=== PATIENT | female | born 1945 | race Caucasian/White ===

== ENCOUNTER 2018-04-23 10:10 | Observation (INO) | payer MEDICARE, OTHER, SELFPAY ==
[2018-04-23] VITALS (10 sets, daily range): BP systolic 126–161; BP diastolic 56–77; PULSE 71–103; RESP 17–20; TEMP 36.5–36.7; O2SAT 92–97; BMI 42.5; BMI 42.6; BMI 42.7
--- NOTE | 2018-04-23 10:14 | ED.RN ---
CALLED FOR EKG . PT TO ROOM. TRIAGE FINISHED AFTER PT TO ROOM
--- NOTE | 2018-04-23 10:31 | EKG12_ITS ---
Test Reason : CP Blood Pressure : / mmHG Vent. Rate : 095 BPM Atrial Rate : 095 BPM P-R Int : 132 ms QRS Dur : 076 ms QT Int : 346 ms P-R-T Axes : 078 061 070 degrees QTc Int : 434 ms Sinus rhythm with marked sinus arrhythmia Low voltage QRS Nonspecific ST abnormality Abnormal ECG Confirmed by ANA NOLASCO, ABENA ([id number]), magazine editor PENNY HESS ([id number]) on 04/27/2018 10:27:37 AM Referred By: FRED Confirmed By:ABENA PEREZ MD
--- NOTE | 2018-04-23 10:35 | RAD_ITS ---
STUDY: X-RAY CHEST REASON FOR EXAM: Female, 72 years old. Chest pain. TECHNIQUE: Single AP portable view of the chest. COMPARISON: None. FINDINGS: EKG electrodes are seen. Hyperinflation. Scattered calcified granulomas. There is no demonstrated pleural abnormality. Normal size heart. Normal mediastinum and willy. Normal visualized pulmonary arteries. There is atherosclerotic calcification of the aortic arch with tortuosity. There are diffuse degenerative changes of the visualized thoracic spine. Normal visualized ribs, clavicles, and shoulders. There is no demonstrated abnormality of the visualized soft tissue structures of the upper abdomen. RAD/Chest 1 View (Portable) IMPRESSION: No acute abnormality is seen. Electronically Signed: Freedom Brandt MD at 11:26 EST , Service support ,
[2018-04-23] MEDS: Aspirin 81 MG TAB.CHEW 324 MG PO (10:47)
[2018-04-23 11:06] LABS: Absolute Lymphocyte Count 1.04 X10^3/ul (0.83-4.51); Absolute Neutrophil Count 3.7 X10^3/uL (2.0-7.7); Basophil# 0.03 X10^3/uL; Basophil% 0.6 % (0-1); Eosinophil# 0.24 X10^3/uL; Eosinophils% 4.5 % (0-5); Hematocrit 44.7 % (37-47); Hemoglobin 14.5 g/dl (12.0-15.0); Lymphocyte # 1.04 X10^3/ul (4.0); Lymphocyte % 19.7 % (19-41); Mean Corp Hgb Conc 32.4 g/gl (32-36); Mean Corpuscular Hgb 29.5 pg (27.0-32.0); Mean Corpuscular Volume 90.9 fL (81-99); Mean Platelet Vol. 9.9 fl (6.2-12.0); Monocyte# 0.22 X10^3/uL; Monocyte% 4.2 % (0-10); Neutrophil # 3.72 X10^3/uL (2.7-7.7); Neutrophil % 70.4 % (47-70); Platelet Count 170 K/mm3 (150-450); RBC Distribution Width CV 15.3 % (11.6-14.6); RBC Distribution Width SD 50.5 fl (35.1-43.9); Red Blood Count 4.92 M/mm3 (4.2-5.4); White Blood Count 5.3 K/mm3 (4.4-11.0)
[2018-04-23 11:07] LABS: POSITIVE COUNT NO; POSITIVE DIFFERENTIAL NO; POSITIVE MORPHOLOGY NO
[2018-04-23 11:19] LABS: ALB/GLOB Ratio 0.9 RATIO (0.9-2.4); AST(SGOT) 65 U/L (15-37); Alanine Aminotransfer ALT/SGPT 109 U/L (13-56); Albumin, Serum 3.4 g/dL (3.2-5.0); Alkaline Phosphatase 70 U/L (45-117); Anion Gap 7 (5-15); BUN 17 mg/dL (7-18); BUN/Creat Ratio 19.2 RATIO (10-20); Calcium,Total 8.8 mg/dL (8.5-10.1); Chloride 103 mmol/L (98-107); Creatinine, Serum 0.88 mg/dL (0.55-1.02); EST Glomerular Filtration Rate 66 mL/min (>60); Est Glom Filt Rate - Afr Amer 80 mL/min (>60); Estimated Creatinine Clearance 42.96 ml/min; Globulin 3.7 g/dL (2.2-4.2); Glucose 222 mg/dL (74-106); Potassium 3.8 mmol/L (3.5-5.1); Protein, Total 7.1 g/dL (6.4-8.2); Sodium Level 140 mmol/L (136-145)
[2018-04-23 11:37] LABS: BNP,B-Type NATRIURETIC PEPTIDE 7.1 pg/mL (0-100)
--- NOTE | 2018-04-23 12:49 | ED.VISSUMM ---
- ER Visit Summary Date of Service: 04/23/18 Chief Complaint: Chest pain History of Present Illness: The patient is a 72 F with left lower chest pain. It wraps around to her back in her right lower chest as well. This has been going on for about a week. Worse at night and sharp. Worse with walking and exertion. She feels short of breath. She says her legs are swelling. She does get nauseated with the pain. She denies any history of DVT or PE. No recent trauma. She had a stress 3 or 4 years ago which she thinks was unremarkable. History of diabetes, high blood pressure, and high cholesterol. Also a history of fatty liver. Former smoker. Physical Examination: Afebrile and vital signs unremarkable except for a blood pressure of 161/77. Patient appears uncomfortable but not toxic or in distress. Heart regular. Lungs clear. Abdomen soft and non-tender. No guarding or rebound. CVA is nontender. Skin appears unremarkable. Skin, calves, pulses unremarkable. Test Results: EKG showed sinus rhythm at a rate of 95. Troponin normal. BNP normal. CBC and CMP normal except for a glucose of 222, total bilirubin 1.10, ALT 109, AST 65. Chest x-ray showed no acute findings. Emergency Department Course and Treatment: Patient presents with chest pain, shortness of breath, nausea. Worse with exertion. History of diabetes, hypertension, hyperlipidemia and a former smoker. She also reports a history of fatty liver. I did check a chest pain workup as well as a hepatic panel. Liver enzymes are slightly elevated but otherwise workup is unremarkable. With her risk factors, I am advising observation in the hospital. Treatment Plan: Above Disposition: Observation in PCU Impression: 1. Chest pain 2. PRESSLEY This note was generated with [employer] software. It may contain incorrect words, spelling, and punctuation that were not noted in review of the chart prior to signing ED Disposition - Plan for ED Patient: Referrals: Maikel Morris [Primary Care Provider] -
--- NOTE | 2018-04-23 14:33 | EKG12_ITS ---
Test Reason : CP ADMISSION Blood Pressure : / mmHG Vent. Rate : 072 BPM Atrial Rate : 072 BPM P-R Int : 126 ms QRS Dur : 078 ms QT Int : 376 ms P-R-T Axes : 054 060 076 degrees QTc Int : 411 ms Normal sinus rhythm Low voltage QRS Borderline ECG When compared with ECG of 06-NOV-2009 09:43, No significant change was found Confirmed by ANA NOLASCO, ABENA ([id number]), editor magazine PENNY HESS ([id number]) on 04/30/2018 11:50:31 AM Referred By: BETH Confirmed By:ABENA PEREZ MD
[2018-04-23 14:36] LABS: Bedside Glucose 98 mg/dL (70-110)
--- NOTE | 2018-04-23 15:26 | PCM.HP.STD ---
Problem List (1) Chest pain Status: Acute History of Present Illness Date of Admission: 04/23/18 Chief Complaint: chest pain The patient is a 72 year old F who has been experiencing chest pain the past few days. Describes it as under her breasts and through to her chest. Denies any exacerbation with deep breaths. Patient states that she does walk her dog and will get chest pain with that. She also does get short of breath along with that too. Has had chest pain like this in the past has had a broken ribs due to coughing. Patient states that she did have upper respiratory infection for several weeks but then stopped on April 07. She is coughing and it is productive intermittently but states that she is doing better overall from her upper respiratory infection. She presented to the emergency room and workup was thus far negative. [] Past Medical History Medical History: Medical History (Last Updated 04/23/18 @ 15:29 by Richar Duncan DO) DM2 (diabetes mellitus, type 2) E11.9 Hypothyroidism E03.9 HTN (hypertension) I10 Allergies Penicillins Allergy (Verified 04/23/18 13:58) Hives Sulfa (Sulfonamide Antibiotics) Allergy (Verified 04/23/18 10:14) Unknown Home Medications: Ambulatory Orders Medication Instructions Recorded Albuterol IH (ProAir) [Proair Hfa 1 puff INHALATION Q4H PRN PRN 04/23/18 (SP)Vent Pts] Aspirin [Adult Aspirin] 81 mg PO QHS 04/23/18 Insulin Aspart [Novolog Flexpen] 24 units SQ TIDCM 04/23/18 Insulin Glargine,Hum.rec.anlog 45 units SQ BID 04/23/18 [Lantus] Levothyroxine [Synthroid] 137 mcg PO DAILY 04/23/18 Losartan Potassium [Cozaar] 12.5 mg PO DAILY 04/23/18 Metformin HCl [Metformin ER 1,500 mg PO BREAKFAST 04/23/18 Osmotic] Pantoprazole Sodium 40 mg PO DAILY 04/23/18 Simvastatin 10 mg PO QHS 04/23/18 Zolpidem Tartrate [Ambien 5 mg PO QHS PRN PRN 04/23/18 (Generic)] Psychiatric History: Anxiety, Depression Smoking Status: Former smoker Tobacco Use: Non-smoker Alcohol: None Drugs: None - *Family History Maternal History Items: - - no CAD Review of Systems Constitutional: Denies: Anorexia, Chills, Fever Eyes: Denies: Blurred vision, Double vision HEENT: Denies: Head Aches, Sinus Congestion, Sinus Drainage Cardiovascular: Reports: Chest Pain, Edema. Denies: Palpitations Respiratory: Denies: Cough, Shortness of breath at rest, Sputum production Gastrointestinal: Denies: Abdominal Pain, Nausea, Vomiting Genitourinary: Denies: Dysuria Musculoskeletal: Denies: Joint Pain, Joint Tenderness Skin: Denies: Rash, Wounds Hematologic/ Lymphatic: Denies: Easy Bruising, Easy Bleeding, Hx of blood clot Comment: A 10 point review of systems were negative except as mentioned in the history of present illness and the other review of systems. VTE Information - Inpt Only VTE Present on Admission: No VTE Pharm Prophylaxis ordered?: Yes Patient Problems: Active and Suspected Problems Chest pain (Acute) - Physical Exam General: Alert, Cooperative, No apparent distress HEENT: Atraumatic, Normocephalic Oral: Moist Mucosa, No Gingival or Mucosal Lesions/ Ulcerations Neck: No Nodes, Thyroid Normal Size and Texture Lungs: Clear to auscultation, Normal air movement, No rhonchi, No wheeze Cardiovascular: Regular rate, Regular Rhythm, Normal S1, Normal S2, No murmurs Abdomen: Bowel Sounds Present, Soft, Non Tender, Non-Distended, No Hepato-splenomegaly Extremities: No edema, No Calf Tenderness Skin: No rashes, No breakdown Musculoskeletal: No Tenderness to Palpation of Joints or Extremities, No Muscle Wasting Psych/Mental Status: Normal Affect, Appropriate Vital Signs Temp Pulse Resp BP Pulse Ox 36.5 C L 87 18 126/56 H 95 04/23/18 13:53 04/23/18 15:07 04/23/18 13:53 04/23/18 13:53 04/23/18 14:11 Oxygen Delivery Method Room Air Weight: 102.4 kg Body Mass Index (BMI) 42.6 Laboratory Tests Past 24 Hrs 04/23/18 04/23/18 04/23/18 10:22 10:22 10:22 WBC 5.3 RBC 4.92 Hgb 14.5 Hct 44.7 MCV 90.9 MCH 29.5 MCHC 32.4 RDW 15.3 H RDW Differential 50.5 H Plt Count 170 MPV 9.9 Immature Gran % (Auto) 0.600 Neut % (Auto) 70.4 H Lymph % (Auto) 19.7 [place] % (Auto) 4.2 Eos % (Auto) 4.5 Baso % (Auto) 0.6 Absolute Neuts (auto) 3.7 Absolute Lymphs (auto) 1.04 Total Counted Not Reportable Sodium 140 Potassium 3.8 Chloride 103 Carbon Dioxide 30.0 Anion Gap 7 BUN 17 Creatinine 0.88 Estim Creat Clear Calc 42.96 Est GFR (MDRD) Af Amer 80 Est GFR (MDRD) Non-Af 66 BUN/Creatinine Ratio 19.2 Glucose 222 H Calcium 8.8 Total Bilirubin 1.10 H AST 65 H ALT 109 H Alkaline Phosphatase 70 Troponin I < 0.015 B-Natriuretic Peptide 7.1 Total Protein 7.1 Albumin 3.4 Globulin 3.7 Albumin/Globulin Ratio 0.9 04/23/18 15:10 WBC RBC Hgb Hct MCV MCH MCHC RDW RDW Differential Plt Count MPV Immature Gran % (Auto) Neut % (Auto) Lymph % (Auto) [place] % (Auto) Eos % (Auto) Baso % (Auto) Absolute Neuts (auto) Absolute Lymphs (auto) Total Counted Sodium Potassium Chloride Carbon Dioxide Anion Gap BUN Creatinine Estim Creat Clear Calc Est GFR (MDRD) Af Amer Est GFR (MDRD) Non-Af BUN/Creatinine Ratio Glucose Calcium Total Bilirubin AST ALT Alkaline Phosphatase Troponin I Pending B-Natriuretic Peptide Total Protein Albumin Globulin Albumin/Globulin Ratio POC Glucose 04/23/18 14:28 POC Glucose 98 EKG shows normal sinus rhythm with no acute changes. Assessment/Plan All Active Problems Chest pain (Acute) 1. Chest pain Atypical Suspect musculoskeletal But given patient's risk factors, important to rule out cardiac etiology Cycle troponins Nuclear stress test on the eighth. If negative, patient will be discharged. If positive, will consult cardiology. 2. Diabetes mellitus type 2 Continue with insulin and metformin Sliding scale added as well 3. DVT prophylaxis with Lovenox Code Visit OBSV E&M: 64777 Initial observation care L2
[2018-04-23 16:36] LABS: Bedside Glucose 192 mg/dL (70-110)
[2018-04-23] MEDS: Insulin Lispro 100 UNIT/ML INSULN.PEN SQ (17:46)
[2018-04-23] MEDS: oxyCODONE 5 MG Tablet PO (19:58)
[2018-04-23] MEDS: Atorvastatin Calcium 10 MG Tablet 5 MG PO (21:34)
[2018-04-23] MEDS: Aspirin E.C. 81 MG Tablet PO (21:34)
[2018-04-23 22:02] LABS: Bedside Glucose 257 mg/dL (70-110)
[2018-04-24 03:25] VITALS: BP 154/67; PULSE 86; RESP 18; TEMP 36.6; O2SAT 94
[2018-04-24 03:52] VITALS: PULSE 80
[2018-04-24 04:48] LABS: Absolute Lymphocyte Count 1.36 X10^3/ul (0.83-4.51); Absolute Neutrophil Count 3.6 X10^3/uL (2.0-7.7); Basophil# 0.04 X10^3/uL; Basophil% 0.7 % (0-1); Eosinophil# 0.18 X10^3/uL; Eosinophils% 3.1 % (0-5); Hematocrit 41.6 % (37-47); Lymphocyte # 1.36 X10^3/ul (4.0); Lymphocyte % 23.6 % (19-41); Mean Corp Hgb Conc 33.7 g/gl (32-36); Mean Corpuscular Hgb 30.6 pg (27.0-32.0); Monocyte% 8.7 % (0-10); Neutrophil # 3.64 X10^3/uL (2.7-7.7); Platelet Count 185 K/mm3 (150-450); RBC Distribution Width CV 15.4 % (11.6-14.6); RBC Distribution Width SD 50.6 fl (35.1-43.9); Red Blood Count 4.57 M/mm3 (4.2-5.4); White Blood Count 5.8 K/mm3 (4.4-11.0)
[2018-04-24 04:52] LABS: Prothrombin Time (Protime)PT. 13.3 SECONDS (11.7-14.9)
[2018-04-24 04:53] LABS: Partial Thromboplast Time 30.5 Seconds (24.1-36.2)
[2018-04-24 04:56] LABS: POSITIVE COUNT NO; POSITIVE DIFFERENTIAL NO; POSITIVE MORPHOLOGY NO
[2018-04-24 05:02] LABS: Anion Gap 10 (5-15); BUN 16 mg/dL (7-18); BUN/Creat Ratio 18.3 RATIO (10-20); Calcium,Total 8.9 mg/dL (8.5-10.1); Chloride 101 mmol/L (98-107); Cholesterol 118 mg/dL (200); Creatinine, Serum 0.88 mg/dL (0.55-1.02); EST Glomerular Filtration Rate 67 mL/min (>60); Est Glom Filt Rate - Afr Amer 81 mL/min (>60); Estimated Creatinine Clearance 42.96 ml/min; Glucose 241 mg/dL (74-106); High Density Lipoprotein 39 mg/dL; Potassium 4.2 mmol/L (3.5-5.1); Sodium Level 142 mmol/L (136-145); Triglycerides 205 mg/dL; Very Low Density Lipoprotein 41 mg/dL (5-40)
--- NOTE | 2018-04-24 05:55 | EKG12_ITS ---
Test Reason : AM Blood Pressure : / mmHG Vent. Rate : 083 BPM Atrial Rate : 083 BPM P-R Int : 122 ms QRS Dur : 078 ms QT Int : 364 ms P-R-T Axes : 079 057 059 degrees QTc Int : 427 ms Normal sinus rhythm with sinus arrhythmia Low voltage QRS Borderline ECG When compared with ECG of 23-APR-2018 14:02, MANUAL COMPARISON REQUIRED, DATA IS UNCONFIRMED Confirmed by ANA NOLASCO, ABENA ([id number]), movie editor PENNY HESS ([id number]) on 04/30/2018 11:49:20 AM Referred By: BETH Confirmed By:ABENA PEREZ MD
[2018-04-24] MEDS: Losartan Potassium 25 MG Tablet 12.5 MG PO (06:31)
[2018-04-24] MEDS: Levothyroxine 137 MCG Tablet PO (06:31)
[2018-04-24] MEDS: 0.9% NaCl Peripheral Flush Adult/Peds IV (06:35)
[2018-04-24 06:51] LABS: Bedside Glucose 264 mg/dL (70-110)
[2018-04-24 07:00] VITALS: PULSE 100
[2018-04-24] MEDS: Acetaminophen 325 MG Tablet 650 MG PO (09:21)
[2018-04-24] MEDS: Pantoprazole Sodium 40 MG Tablet PO (09:22)
[2018-04-24 09:25] VITALS: BP 154/82; PULSE 93; RESP 16; TEMP 36.6; O2SAT 98
[2018-04-24 11:00] VITALS: PULSE 72
[2018-04-24] MEDS: Insulin Lispro 100 UNIT/ML INSULN.PEN SQ (11:14)
--- NOTE | 2018-04-24 11:20 | DCINST_ITS ---
- Discharge Diagnoses Current Active Problems: Current Active and Chronic Problems (Last Updated 04/23/18 @ 15:29 by Richar Duncan DO) Chest pain (Acute) You will use the following diet at home:: Calorie/Carbohydrate Controlled (specify 1200, 1400, etc) - 1800 calories/day Your food should be the consistency of: Regular Your liquids should be the consistency of: Regular/Thin Discharge Activity: Return to Normal Activity Instructions: ED Chest Pain NonCardiac Allergies/Adverse Reactions: Allergies Penicillins Allergy (Verified 04/23/18 13:58) Hives Sulfa (Sulfonamide Antibiotics) Allergy (Verified 04/23/18 10:14) Unknown Medications to take at Discharge Albuterol IH (ProAir) [Proair Hfa] 1 puff INHALATION Q4H PRN PRN 04/23/18 Aspirin [Adult Aspirin] 81 mg PO QHS 04/23/18 Insulin Aspart [Novolog Flexpen] 24 units SQ TIDCM 04/23/18 Insulin Glargine,Hum.rec.anlog [Lantus] 45 units SQ BID 04/23/18 Levothyroxine [Synthroid] 137 mcg PO DAILY 04/23/18 Losartan Potassium [Cozaar] 12.5 mg PO DAILY 04/23/18 Metformin HCl [Metformin HCl ER] 1,500 mg PO BREAKFAST 04/23/18 Pantoprazole Sodium 40 mg PO DAILY 04/23/18 Simvastatin 10 mg PO QHS 04/23/18 Zolpidem Tartrate [Ambien] 5 mg PO QHS PRN PRN 04/23/18 Acetaminophen [Tylenol Tablet] 1,000 mg PO TID PRN tablet 04/24/18 Ibuprofen 2 - 3 tab PO Q6H PRN #1 tablet 04/24/18 The following prescriptions were given: Ibuprofen 2 - 3 tab PO Q6H PRN #1 tablet PRN Reason: Pain Primary Care Physician: Maikel Morris [Primary Care Provider] - Within 2 Weeks Test Results: Test results from this visit will be discussed in further detail at your follow- up appointment, if applicable. Proposed Discharge Date: 04/24/18
--- NOTE | 2018-04-24 11:20 | PCM.DC.SUM ---
Discharge Date and Diagnosis - Problem List Patient Problems: Active and Suspected Problems (Last Updated 04/23/18 @ 15:29 by Richar Duncan DO) Chest pain (Acute) Date of Admission: 04/23/18 Date of Discharge: 04/24/18 - Primary Discharge Diagnosis Active and Suspected Problems (Last Updated 04/23/18 @ 15:29 by Richar Duncan DO) Chest pain (Acute) Hospital Course and Treatment Imaging Results: 04/24/18 05:55 Nuclear Stress Test - Chemical [NM] AM (NON MEDS) Clinical Impression(s) from Imaging Studies Chest X-Ray 04/23/18 10:35 IMPRESSION: No acute abnormality is seen. Electronically Signed: Freedom Brandt MD at 11:26 EST , Service support , Operations: None Procedures: Stress test Summary of Care Provided: The patient is a 72 year old F is with chest pain. Chest pain was described as lower chest and through to her back along the lateral aspect of her left chest. Patient had reproducible back pain and rib pain along the lines of where she was indicating. But given patient's history and other comorbidities, patient was brought into the hospital and underwent a stress test. Patient had a stress test today that was negative. I discussed with the patient about the findings and also discussed that this is likely associated with ribs. Patient previously has had a history of rib fractures. Explained that if she has a rib fracture, which I do not suspect or just cost chondritis versus muscle strain that will take several weeks for it to feel better. Discussed with the patient's at bedside. I did evaluate the skin to make sure she did not have vesicles over her left lateral chest. [] Patient Problems: Active and Suspected Problems (Last Updated 04/23/18 @ 15:29 by Richar Duncan DO) Chest pain (Acute) - Physical Exam General: Alert, No apparent distress HEENT: Atraumatic, Normocephalic Psych/Mental Status: Normal Affect, Appropriate Vital Signs Temp Pulse Resp BP Pulse Ox 36.6 C 93 16 154/82 H 98 04/24/18 09:25 04/24/18 09:25 04/24/18 09:25 04/24/18 09:25 04/24/18 09:25 Oxygen Delivery Method Room Air Weight: 102.4 kg Body Mass Index (BMI) 42.6 Intake and Output for Last 24 Hours 04/22/18 04/23/18 04/24/18 23:59 23:59 23:59 Intake Total 1050 / 1050 Balance 1050 / 1050 Laboratory Tests Past 24 Hrs 04/23/18 04/23/18 04/23/18 10:22 15:10 17:20 WBC RBC Hgb Hct MCV MCH MCHC RDW RDW Differential Plt Count MPV Immature Gran % (Auto) Neut % (Auto) Lymph % (Auto) [place] % (Auto) Eos % (Auto) Baso % (Auto) Absolute Neuts (auto) Absolute Lymphs (auto) Total Counted PT INR APTT Sodium Potassium Chloride Carbon Dioxide Anion Gap BUN Creatinine Estim Creat Clear Calc Est GFR (MDRD) Af Amer Est GFR (MDRD) Non-Af BUN/Creatinine Ratio Glucose Calcium Troponin I < 0.015 < 0.015 B-Natriuretic Peptide 7.1 Triglycerides Cholesterol LDL Cholesterol VLDL Cholesterol HDL Cholesterol 04/24/18 04/24/18 04/24/18 04:28 04:28 04:28 WBC 5.8 RBC 4.57 Hgb 14.0 Hct 41.6 MCV 91.0 MCH 30.6 MCHC 33.7 RDW 15.4 H RDW Differential 50.6 H Plt Count 185 MPV 10.0 Immature Gran % (Auto) 0.900 Neut % (Auto) 63.0 Lymph % (Auto) 23.6 [place] % (Auto) 8.7 Eos % (Auto) 3.1 Baso % (Auto) 0.7 Absolute Neuts (auto) 3.6 Absolute Lymphs (auto) 1.36 Total Counted Not Reportable PT 13.3 INR 1.0 APTT 30.5 Sodium 142 Potassium 4.2 Chloride 101 Carbon Dioxide 31.0 Anion Gap 10 BUN 16 Creatinine 0.88 Estim Creat Clear Calc 42.96 Est GFR (MDRD) Af Amer 81 Est GFR (MDRD) Non-Af 67 BUN/Creatinine Ratio 18.3 Glucose 241 H Calcium 8.9 Troponin I B-Natriuretic Peptide Triglycerides 205 H Cholesterol 118 LDL Cholesterol 38 VLDL Cholesterol 41 H HDL Cholesterol 39 L POC Glucose 04/24/18 04/23/18 04/23/18 06:29 21:31 16:16 POC Glucose 264 H 257 H 192 H 04/23/18 14:28 POC Glucose 98 Discharge Diet: 1800 Calorie Control Diet Discharge Activity: Return to Normal Activity Home Medications: Medications to take at Discharge Albuterol IH (ProAir) [Proair Hfa] 1 puff INHALATION Q4H PRN PRN 04/23/18 Aspirin [Adult Aspirin] 81 mg PO QHS 04/23/18 Insulin Aspart [Novolog Flexpen] 24 units SQ TIDCM 04/23/18 Insulin Glargine,Hum.rec.anlog [Lantus] 45 units SQ BID 04/23/18 Levothyroxine [Synthroid] 137 mcg PO DAILY 04/23/18 Losartan Potassium [Cozaar] 12.5 mg PO DAILY 04/23/18 Metformin HCl [Metformin HCl ER] 1,500 mg PO BREAKFAST 04/23/18 Pantoprazole Sodium 40 mg PO DAILY 04/23/18 Simvastatin 10 mg PO QHS 04/23/18 Zolpidem Tartrate [Ambien] 5 mg PO QHS PRN PRN 04/23/18 Acetaminophen [Tylenol Tablet] 1,000 mg PO TID PRN tablet 04/24/18 Ibuprofen 2 - 3 tab PO Q6H PRN #1 tablet 04/24/18 Following Prescrptions Were Given to Patient: Ibuprofen 2 - 3 tab PO Q6H PRN #1 tablet PRN Reason: Pain Primary Care Physician: Maikel Morris [Primary Care Provider] - Within 2 Weeks Patient Instructions: ED Chest Pain NonCardiac Disposition: Home Minutes spent on discharge:: 25 Patient Condition:: Good Medical Necessity - Tobacco Use Smoking Status: Former smoker Tobacco Use: Non-smoker Meaningful Use Info Meaningful Use Diagnoses (Choose all that apply): None applicable Code Visit OBSV E&M: 75383 Observation care discharge
[2018-04-24 11:41] LABS: Bedside Glucose 297 mg/dL (70-110)
--- NOTE | 2018-04-24 11:51 | STRESSREP ---
Stress Test Report Pharmacologic myocardial perfusion stress test. 72-year-old lady with a history of chest pain. Stress protocol: Resting EKG demonstrates normal sinus rhythm with a rate of 83 bpm normal intervals are noted resting blood pressure 132/64 mmHg. 0.4 mg of regadenoson was infused per usual protocol followed by rapid intravenous saline flush injection continuous EKG monitoring was performed. The maximum heart rate attained was 108 bpm which was 73% of maximum predicted heart rate the maximum workload was 1 metabolic equivalent. At rest there were no ST or T wave changes noted suggest abnormal flow reserve at peak infusion no ST or T wave changes were noted suggest abnormal flow reserve. Resting blood pressure 132/64 final blood pressure was 128/72. Myocardial perfusion protocol. 14.7 mCi of technetium 99m sestamibi was injected at rest. 0.4 mg of regadenoson was infused per usual protocol peak infusion 44.4 mCi of technetium 99m sestamibi was injected stress images were obtained stress and rest images were reconstructed and compared in the short axis vertical and horizontal long axis. Gated images were also obtained next Perfusion SPECT analysis: Review of the stress images demonstrate normal uptake of tracer noted in all areas of the myocardium. The rest images similarly demonstrate normal uptake of tracer noted in all areas of myocardium. No areas of reversibility are noted suggest ischemia no previous infarct is noted. Gated SPECT analysis: The gated ejection fraction of 78% proximal conclusion: Normal pharmacologic myocardial perfusion stress test. Preserved ejection fraction.
== END 2018-04-24 11:19 | disposition home or self-care (01) ==
LOC: ED 13:01 → PCU 13:14
PROVIDERS: Emergency Provider Emergency Medicine
DX: R07.89 Other chest pain (principal); R06.02 Shortness of breath; R11.0 Nausea; I10 Essential (primary) hypertension; K75.81 Nonalcoholic steatohepatitis (NASH); E78.5 Hyperlipidemia, unspecified; Z79.4 Long term (current) use of insulin; Z87.891 Personal history of nicotine dependence; Z79.82 Long term (current) use of aspirin; Z79.899 Other long term (current) drug therapy; E03.9 Hypothyroidism, unspecified; F41.9 Anxiety disorder, unspecified; F32.9 Major depressive disorder, single episode, unspecified; R94.31 Abnormal electrocardiogram [ECG] [EKG]
CPT/HCPCS: 36415; 71045; 78452; 80048; 80053; 80061; 82962; 83880; 84484; 85025; 85610; 85730; 93005; 93017; 99218; 99284; A9500; A4216; G0378; J2785

== ENCOUNTER → 2018-05-08 15:01 | Outpatient (CLI) | payer MEDICARE, OTHER, SELFPAY ==
[2018-04-23 14:07] VITALS: BMI 42.6
[2018-05-11 15:39] LABS: Anti-Smooth Muscle ABS 6 Units (0-19); HEPATITIS B SURFACE AG Negative (Negative); Hep C Antibodies 0.1 s/co ratio (0.0-0.9)
[2018-05-12 15:35] LABS: ANTINUCLEAR ANTIBODIES DIRECT Negative (Negative); Anti-Mitochondrial AB 16.9 Units (0.0-20.0)
== END ==
PROVIDERS: Referring Provider Internal Medicine Gastroenterology; Visit Provider Internal Medicine Gastroenterology
DX: K75.9 Inflammatory liver disease, unspecified (principal)
CPT/HCPCS: 36415; 83516; 86038; 86803; 87340

== ENCOUNTER → 2018-05-12 14:03 | Outpatient (CLI) | payer MEDICARE, OTHER, SELFPAY ==
[2018-04-23 14:07] VITALS: BMI 42.6
--- NOTE | 2018-05-12 14:08 | CT_ITS ---
STUDY: CT ABDOMEN WITH CONTRAST REASON FOR EXAM: Female, 72 years old. RADIATION DOSAGE (If Supplied By Facility): CTDIvol = ( 17.07 ) mGy, DLP = ( 762.75 ) mGycm TECHNIQUE: Transaxial images were obtained post I.V. administration of Isovue 300 100ML IV, and with oral contrast. Sagittal and coronal images were reconstructed. Individualized dose optimization techniques were used for this CT. COMPARISON: None. FINDINGS: The visualized lung bases are unremarkable. The visualized portions of the heart are within normal limits. Mild fatty infiltration of the liver. Gallbladder is surgically absent. No biliary duct dilatation. Normal spleen. Normal pancreas. Normal bilateral adrenal glands. Partially enhancing hypoattenuated lesion within the left upper renal pole measuring 2.3 cm. Additional hypoattenuated lesion at the left upper renal pole measuring near water density. Normal bilateral ureters. Normal visualized stomach. There is a diverticulum arising off of the third portion of the duodenum. Remaining visualized small bowel loops are unremarkable. Normal visualized colon. The appendix is not visualized. Mild atherosclerotic calcification of the abdominal aorta. Normal inferior vena cava. Normal retroperitoneum. No free air or free fluid. Normal abdominal wall. Mild anterior wedging of the L1 vertebral body of uncertain acuity. CT/Abdomen WITH IV Contrast IMPRESSION: 1. 2.3 cm partially enhancing hypoattenuated lesion at the left upper renal pole, concerning for renal cell carcinoma. Dedicated MR imaging should be obtained for further characterization. 2. Simple appearing left upper renal pole cyst. 3. Mild fatty infiltration of the liver. 4. Diverticulum off the third portion of the duodenum. Electronically Signed: Kevin Dodge MD at 1:38 EST Tel , Service support ,
== END ==
PROVIDERS: Referring Provider Internal Medicine Gastroenterology; Visit Provider Internal Medicine Gastroenterology
DX: R10.11 Right upper quadrant pain (principal); K76.0 Fatty (change of) liver, not elsewhere classified
CPT/HCPCS: 74160; Q9967

== ENCOUNTER → 2018-12-07 12:29 | Outpatient (CLI) | payer MEDICARE, OTHER, SELFPAY ==
[2018-04-23 14:07] VITALS: BMI 42.6
[2018-12-07 13:05] LABS: D-Dimer Quantitative (DVT/PE) 0.35 FEU/ug/m (0.27-0.49)
== END ==
PROVIDERS: Referring Provider Family Medicine; Visit Provider Family Medicine
DX: R07.9 Chest pain, unspecified (principal)
CPT/HCPCS: 85379

== ENCOUNTER 2019-04-13 06:46 | Inpatient (IN) | payer MEDICARE, OTHER, SELFPAY ==
[2018-04-23 14:07] VITALS: BMI 42.6
[2019-04-13 05:19] VITALS: BMI 42.9
[2019-04-13 05:20] VITALS: BP 144/63; PULSE 81; RESP 16; TEMP 36.4; O2SAT 93
[2019-04-13 05:26] VITALS: BMI 42.9
--- NOTE | 2019-04-13 06:33 | HP.PCM_ITS ---
Problem List (1) Diabetes Status: Chronic (2) Hyperlipidemia Status: Chronic (3) GERD (gastroesophageal reflux disease) Status: Chronic (4) Hypothyroid Status: Chronic (5) Unable to bear weight Status: Acute (6) Left knee pain Status: Acute (7) Left hip pain Status: Acute History of Present Illness Date of Admission: 04/13/19 Chief Complaint: left knee and hip pain The patient is a 73 year old female patient with a past medical history of diabetes, hypothyroidism, GERD, hyperlipidemia who presents to the emergency room in [place] the chief complaint of left knee and left hip pain. Initially the patient states that a week ago she had pain after twisting while walking she denies having a fall or other trauma. Yesterday the patient was standing on a step and she twisted to her left and felt something pop. After this occurred the patient was no longer able to bear weight on her left lower extremity. In the [place] ER x-rays were obtained and were negative for fracture. Due to significant pain and unable to bear weight she was transferred to our facility for further work-up. Past Medical History Past Medical History (Chronic Problems): Chronic Problems (Last Updated 04/23/18 @ 15:29 by Richar Duncan DO) Diabetes (Chronic) Hyperlipidemia (Chronic) GERD (gastroesophageal reflux disease) (Chronic) Hypothyroid (Chronic) Medical History: Medical History (Last Updated 04/23/18 @ 15:29 by Richar Duncan DO) DM2 (diabetes mellitus, type 2) E11.9 Hypothyroidism E03.9 HTN (hypertension) I10 Allergies Penicillins Allergy (Verified 04/23/18 13:58) Hives Sulfa (Sulfonamide Antibiotics) Allergy (Verified 04/23/18 10:14) Unknown codeine Adverse Reaction (Verified 04/13/19 05:21) Upset Stomach Home Medications: Ambulatory Orders Medication Instructions Recorded Albuterol IH (ProAir) [Proair Hfa] 1 puff INHALATION Q4H PRN PRN 04/23/18 Aspirin [Adult Aspirin] 81 mg PO QHS 04/23/18 Insulin Aspart [Novolog Flexpen] 24 units SQ TIDCM 04/23/18 Insulin Glargine,Hum.rec.anlog 45 units SQ BID 04/23/18 [Lantus] Levothyroxine [Synthroid] 137 mcg PO DAILY 04/23/18 Losartan Potassium [Cozaar] 12.5 mg PO DAILY 04/23/18 Metformin HCl [Metformin ER 1,500 mg PO BREAKFAST 04/23/18 Osmotic] Pantoprazole Sodium 40 mg PO DAILY 04/23/18 Simvastatin 10 mg PO QHS 04/23/18 Zolpidem Tartrate [Ambien] 5 mg PO QHS PRN PRN 04/23/18 Acetaminophen [Tylenol Tablet] 1,000 mg PO TID PRN tablet 04/24/18 Ibuprofen 2 - 3 tab PO Q6H PRN #1 tablet 04/24/18 Psychiatric History: Anxiety, Depression Smoking Status: Former smoker - *Family History Maternal History Items: - - no CAD Review of Systems Constitutional: Denies: Chills, Fever, Weight Change HEENT: Denies: Head Aches, Sinus Congestion, Sinus Drainage Cardiovascular: Denies: Chest Pain, Palpitations Respiratory: Denies: Cough, Shortness of breath at rest, Sputum production Gastrointestinal: Denies: Abdominal Pain, Nausea, Vomiting Genitourinary: Denies: Dysuria Musculoskeletal: Reports: Joint Pain, Joint Tenderness, Leg Pain Skin: Denies: Rash, Wounds Neurological: Denies: Numbness, Tingling, Focal weakness Psychiatric: Denies: Anxiety, Depression, Homicidal Ideations, Suicidal Ideations Hematologic/ Lymphatic: Denies: Easy Bruising, Easy Bleeding VTE Information - Inpt Only VTE Present on Admission: No VTE Mechan Device Prophylaxis: None VTE Pharm Prophylaxis ordered?: Yes Patient Problems: Active and Suspected Problems (Last Updated 04/23/18 @ 15:29 by Richar Duncan, DO) Unable to bear weight (Acute) Left knee pain (Acute) Left hip pain (Acute) - Physical Exam Vitals/I&O's: Vital Signs Temp Pulse Resp BP Pulse Ox 97.6 F L 81 16 144/63 H 93 04/13/19 05:20 04/13/19 05:20 04/13/19 05:20 04/13/19 05:20 04/13/19 05:20 Oxygen Flow Rate (L/min) 2 Oxygen Delivery Method Nasal Cannula Weight: 227 lb 1.218 oz Body Mass Index (BMI) 42.9 Intake and Output for Last 24 Hours 04/11/19 04/12/19 04/13/19 23:59 23:59 23:59 Intake Total 240 / 240 Output Total 0 / 0 Balance 240 / 240 General: Alert, Oriented x3, Cooperative HEENT: Atraumatic, Normocephalic Neck: Supple, Negative Carotid Bruits Lungs: Clear to auscultation, Normal air movement Cardiovascular: Regular rate, Normal S1, Normal S2, No murmurs Abdomen: Bowel Sounds Present, Soft, Non Tender, Obese Extremities: No edema Skin: No rashes, No breakdown Musculoskeletal: Tenderness - left knee medial tenderness with mild swelling, decrease rom and sig pain with movement left hip pain on int rotation,adduction and abduction Neurological: Neuro grossly intact Psych/Mental Status: Normal Affect, Appropriate Current Medications Sodium Chloride () 250 mls @ 15 mls/hr IV .[id number] PRN PRN Reason: Saline Flush Sodium Chloride () 250 mls @ 15 mls/hr IV .[id number] PRN PRN Reason: Additional IVPB Infusion Sodium Chloride () 10 - 40 ml IV UD PRN PRN Reason: SALINE FLUSH Assessment/Plan All Active Problems (Last Updated 04/23/18 @ 15:29 by Richar Duncan DO) Chest pain (Acute) Unable to bear weight (Acute) Left knee pain (Acute) Left hip pain (Acute) Chronic Problems (Last Updated 04/23/18 @ 15:29 by Richar Duncan DO) Diabetes (Chronic) Hyperlipidemia (Chronic) GERD (gastroesophageal reflux disease) (Chronic) Hypothyroid (Chronic) Plan 1. Left lower extremity pain/left knee/left hip?admit to general medical floor, consult physical therapy for evaluation and treatment, noncontrast MRI left hip left knee today and consider orthopedic referral if necessary 2. diabetes?continue current medication regimen 3. GERD?continue PPI 4. Hypothyroidism?continue Synthroid replacement 5. DVT prophylaxis?low molecular weight heparin Code Visit Inpatient E&M: 03511 Init Hosp L3
--- NOTE | 2019-04-13 06:54 | MRI_ITS ---
STUDY: MR PELVIS WITHOUT CONTRAST REASON FOR EXAM: Female, 73 years old. LEFT hip and knee pain, unable to bear weight. Twisting injury, felt a and quot;pop and quot; TECHNIQUE: Standardized fat and water weighted pulse sequences were obtained in all 3 orthogonal planes. COMPARISON: None. FINDINGS: Normal urinary bladder. Normal visualized small intestine. Normal visualized colon. There is no pelvic fluid. There is no pelvic mass lesion or lymphadenopathy. Normal visualized pelvic arteries. Normal osseous structures. Normal abdominal wall. MRI/Pelvis (Routine) IMPRESSION: Normal unenhanced MRI of the pelvis. Electronically Signed: Aubrey Hui MD at 10:41 EST Tel , Service support ,
--- NOTE | 2019-04-13 06:55 | MRI_ITS ---
STUDY: MRI LEFT KNEE REASON FOR EXAM: Female, 73 years old. Knee pain TECHNIQUE: Standardized fat and water weighted pulse sequences were obtained in all 3 orthogonal planes. COMPARISON: None. FINDINGS: Normal medial meniscus. There is diffuse, less than 50% thickness articular cartilage loss of the medial femorotibial compartment. Normal medial femoral condyle and tibial plateau. Normal medial collateral ligamentous complex (MCL). Normal distal semimembranosus, gracilis and semitendinosus tendons. Normal lateral meniscus. Normal hyaline cartilage of the lateral femorotibial compartment. Normal lateral femoral condyle and tibial plateau. Normal proximal tibiofibular articulation. Normal lateral collateral (fibular) ligament. Normal popliteus tendon. Normal biceps femoris tendon. Normal anterior cruciate ligament (ACL). Normal posterior cruciate ligament (PCL). Normal congruent patellofemoral articulation. Normal hyaline cartilage of the patellofemoral compartment. Normal medial and lateral patellar retinaculum. Normal quadriceps tendon. Normal patellar tendon. Normal Hoffa''s fat pad. There is a small volume joint effusion. There is a Salas''s cyst. The soft tissues are unremarkable. The otherwise visualized osseous structures are unremarkable. MRI/Lower Ext Joint Only (Routine) IMPRESSION: Mild medial compartment arthrosis with a small joint effusion with Salas''s cyst but no acute internal derangement. Electronically Signed: Aubrey Hui MD at 11:40 EST Tel , Service support ,
[2019-04-13] MEDS: Levothyroxine 137 MCG Tablet PO (07:40)
[2019-04-13] MEDS: Losartan Potassium 25 MG Tablet 12.5 MG PO (07:41)
[2019-04-13] MEDS: Enoxaparin 40 MG/0.4 ML Syringe SC (07:41)
[2019-04-13] MEDS: Pantoprazole Sodium 40 MG Tablet PO (07:41)
[2019-04-13] MEDS: HYDROmorphone 0.5 MG/0.5 ML SYRINGE IV ×2 (07:43→11:50)
[2019-04-13] MEDS: 0.9% Saline Lock 10 ML Syringe IV ×2 (07:43→11:50)
[2019-04-13 08:03] LABS: Absolute Lymphocyte Count 1.47 X10^3/uL (0.83-4.51); Absolute Neutrophil Count 6.3 X10^3/uL (2.0-7.7); Basophil# 0.07 X10^3/uL; Basophil% 0.8 % (0-1); Eosinophils% 3.4 % (0-5); Hematocrit 45.3 % (37-47); Hemoglobin 14.6 g/dL (12.0-15.0); Lymphocyte # 1.47 X10^3/ul (4.0); Lymphocyte % 16.7 % (19-41); Mean Corp Hgb Conc 32.2 g/dL (32-36); Mean Corpuscular Hgb 29.3 pg (27.0-32.0); Mean Platelet Vol. 9.5 fl (6.2-12.0); Monocyte# 0.59 X10^3/uL; Monocyte% 6.7 % (0-10); NRBC Flagged by Analyzer 0 % (0-5); Neutrophil # 6.28 X10^3/uL (2.7-7.7); Neutrophil % 71.2 % (47-70); Platelet Count 187 K/mm3 (150-450); RBC Distribution Width CV 14.6 % (11.6-14.6); RBC Distribution Width SD 48.9 fl (35.1-43.9); Red Blood Count 4.98 M/mm3 (4.2-5.4); White Blood Count 8.8 K/mm3 (4.4-11.0)
[2019-04-13 08:14] LABS: Anion Gap 1 (5-15); BUN 14 mg/dL (7-18); BUN/Creat Ratio 16.3 RATIO (10-20); Calcium,Total 9.3 mg/dL (8.5-10.1); Chloride 104 mmol/L (98-107); Creatinine, Serum 0.86 mg/dL (0.55-1.02); EST Glomerular Filtration Rate 69 mL/min (>60); Est Glom Filt Rate - Afr Amer 83 mL/min (>60); Estimated Creatinine Clearance 43.31 ml/min; Glucose 99 mg/dL (74-106); Potassium 3.8 mmol/L (3.5-5.1); Sodium Level 140 mmol/L (136-145)
[2019-04-13 09:30] VITALS: BP 138/63; PULSE 75; RESP 16; TEMP 36.5; O2SAT 97
[2019-04-13] MEDS: Insulin Lispro 100 UNIT/ML INSULN.PEN 24 UNIT SC ×2 (09:43→11:54)
[2019-04-13 09:50] LABS: Bedside Glucose 144 mg/dL (70-110)
[2019-04-13 12:00] LABS: Bedside Glucose 153 mg/dL (70-110)
--- NOTE | 2019-04-13 13:35 | CASEMGMT ---
Therapy is recommending [facility] for pt at discharge and further therapy. Pt would like [facility] to take home at discharge and states no preference on DME company after verbal list given. Call to [employer] and they have a home delivery driver here at hospital that has a [facility] in truck so can deliver ian. Referral faxed to [employer] at this time. Pt declines [facility] at this time but is agreeable to a script for OP therapy which she would like to take to facility of her choice. OP therapy script provided to pt at this time and pt/ updated about delivery of [facility], voice understanding. Pt/ voice no further questions/concerns/needs at this time. Jesus Alberto SHORE CM
--- NOTE | 2019-04-13 13:37 | PCM.DC ---
- Discharge Diagnoses Current Active Problems: Current Active and Chronic Problems (Last Updated 04/23/18 @ 15:29 by Richra Duncan DO) Diabetes (Chronic) Hyperlipidemia (Chronic) GERD (gastroesophageal reflux disease) (Chronic) Hypothyroid (Chronic) Unable to bear weight (Acute) Left knee pain (Acute) Left hip pain (Acute) You will use the following diet at home:: Calorie/Carbohydrate Controlled (specify 1200, 1400, etc) - 1800 aleah / day Your food should be the consistency of: Regular Your liquids should be the consistency of: Regular/Thin Discharge Activity: Return to Normal Activity, Use Walker Additional Instructions: Rest is essential to your recovery. Ice should help with decreasing inflammation and decreasing pain - twenty minutes on, twenty minutes off. Pursue outapient physical thearpy. Use walker for stability when walking. Allergies/Adverse Reactions: Allergies Penicillins Allergy (Verified 04/23/18 13:58) Hives Sulfa (Sulfonamide Antibiotics) Allergy (Verified 04/23/18 10:14) Unknown codeine Adverse Reaction (Verified 04/13/19 05:21) Upset Stomach Medications to take at Discharge Albuterol IH (ProAir) [Proair Hfa] 1 puff INHALATION Q4H PRN PRN 04/23/18 Aspirin [Adult Aspirin] 81 mg PO QHS 04/23/18 Insulin Aspart [Novolog Flexpen] 24 units SQ TIDCM 04/23/18 Insulin Glargine,Hum.rec.anlog [Lantus] 45 units SQ BID 04/23/18 Levothyroxine [Synthroid] 137 mcg PO DAILY 04/23/18 Losartan Potassium [Cozaar] 12.5 mg PO DAILY 04/23/18 Metformin HCl [Metformin ER Osmotic] 1,500 mg PO BREAKFAST 04/23/18 Pantoprazole Sodium 40 mg PO DAILY 04/23/18 Simvastatin 10 mg PO QHS 04/23/18 Zolpidem Tartrate [Ambien] 5 mg PO QHS PRN PRN 04/23/18 Ibuprofen 2 - 3 tab PO Q6H PRN #1 tablet 04/24/18 Acetaminophen [Tylenol Tablet] 650 mg PO Q6H PRN PRN tablet 04/13/19 Oxycodone [Oxyir] 5 mg PO Q6H PRN PRN 3 Days #12 tablet 04/13/19 Tizanidine HCl [Zanaflex] 2 mg PO Q8H PRN PRN #15 tab 04/13/19 The following prescriptions were given: Oxycodone [Oxyir] 5 mg PO Q6H PRN PRN 3 Days #12 tablet PRN Reason: Pain Score 6-10/10 Transmission Status: Sent to [facility] Tizanidine HCl [Zanaflex] 2 mg PO Q8H PRN PRN #15 tab PRN Reason: Muscle Spasm Transmission Status: Pending to [facility] Primary Care Physician: Maikel Morris [Primary Care Provider] - Please follow up with your Primary Care Physician in: 1-2 weeks Test Results: Test results from this visit will be discussed in further detail at your follow-up appointment, if applicable. Proposed Discharge Date: 04/13/19
--- NOTE | 2019-04-13 13:40 | PCM.DC.SUM ---
<Pablo Knight - Last Filed: 04/13/19 13:40> Discharge Date and Diagnosis Date of Admission: 04/13/19 Date of Discharge: 04/13/19 - Primary Discharge Diagnosis Active and Suspected Problems (Last Updated 04/23/18 @ 15:29 by Richar Duncan DO) Muscle sprain, left proximal leg Osteoarthritis of the knee Salas's cyst Dmt2 with morbid obesity Hypothyroidism HLD GERD - Secondary Discharge Diagnosis Chronic Problems (Last Updated 04/23/18 @ 15:29 by Richar Duncan DO) Diabetes (Chronic) Hyperlipidemia (Chronic) GERD (gastroesophageal reflux disease) (Chronic) Hypothyroid (Chronic) Hospital Course and Treatment Imaging Results: 04/13/19 06:54 MRI Hip [Pelvis (Routine)] [MRI] Urgent MRI/Pelvis (Routine) IMPRESSION: Normal unenhanced MRI of the pelvis. 04/13/19 06:55 MRI Knee [Lower Ext Joint Only (Routine)] [MRI] Urgent MRI/Lower Ext Joint Only (Routine) IMPRESSION: Mild medial compartment arthrosis with a small joint effusion with Salas''s cyst but no acute internal derangement. Operations: None Procedures: None Summary of Care Provided: Hospital course: The patient is a 73 year old F with past medical history as above who presented to the emergency room for left knee pain. The patient noted that about a week prior she had had pain after twisting her knee while walking her dog. At the time she was able to get back into her house and was dealing with ongoing pain throughout the week. Day of presentation she was standing at the top of her stairs and turned suddenly to the left and felt a severe onset of new pain. She is unable to weight-bear and called the squad to bring her to the hospital. She was transferred from [facility] to here for intractable pain, inability to ambulate. The following morning she underwent an MRI of the pelvis and knee which demonstrated mild medial compartment arthrosis with small joint effusion with Salas's cyst. On physical exam the knee and hip were stable. She had muscle spasms on the left lateral aspect of her proximal leg over the IT band. She was felt to likely have a muscle strain. She was able to ambulate with physical therapy. I recommended ice, physical therapy, analgesics, anti-inflammatories, and muscle relaxers. She was discharged home in stable condition and plans to pursue physical therapy at the [facility]. She will need to follow-up with her PCP in 1 to 2 weeks. This patient was seen by Pablo Knight PA-C under the supervision of Doctor Alba. [] - Physical Exam Vitals/I&O's: Vital Signs Temp Pulse Resp BP Pulse Ox 97.7 F L 75 16 138/63 H 97 04/13/19 09:30 04/13/19 09:30 04/13/19 09:30 04/13/19 09:30 04/13/19 09:30 Oxygen Flow Rate (L/min) 2 Oxygen Delivery Method Nasal Cannula Weight: 227 lb 1.218 oz Body Mass Index (BMI) 42.9 Intake and Output for Last 24 Hours 04/11/19 04/12/19 04/13/19 23:59 23:59 23:59 Intake Total 740 / 740 Output Total 0 / 0 Balance 740 / 740 General: Alert, Oriented x3, Cooperative HEENT: Atraumatic, PERRLA, EOMI, Normocephalic Neck: Supple, No JVD, Negative Carotid Bruits Lungs: Clear to auscultation, Normal air movement Cardiovascular: Regular rate, No murmurs Abdomen: Bowel Sounds Present, Soft, Non Tender Extremities: No edema, Capillary Refill Less than 3 Seconds Skin: No rashes, No breakdown Musculoskeletal: No Tenderness to Palpation of Joints or Extremities, - - muscle spasm on palpation with tenderness left lateral thigh, IT band tenderness. Knee negative ballotment, negative anterior and posterior drawer test. Negative crepitation. Negative valgus/varus laxity. Mild tenderness and swelling of the distal leg at the knee felt anteriorly. Neurological: Cranial nerves II-XII grossly intact Psych/Mental Status: Normal Affect, Appropriate Laboratory Results 04/13/19 07:50: WBC 8.8, RBC 4.98, Hgb 14.6, Hct 45.3, MCV 91.0, MCH 29.3, MCHC 32.2, RDW Std Deviation 48.9 H, RDW Coeff of Magnolia 14.6, Plt Count 187, MPV 9.5, Immature Gran % (Auto) 1.200 H, Neut % (Auto) 71.2 H, Lymph % (Auto) 16.7 L, Apache % (Auto) 6.7, Eos % (Auto) 3.4, Baso % (Auto) 0.8, Absolute Neuts (auto) 6.3, Absolute Lymphs (auto) 1.47, Nucleated RBC % 0 04/13/19 07:50: Sodium 140, Potassium 3.8, Chloride 104, Carbon Dioxide 35.0 H, Anion Gap 1 L, BUN 14, Creatinine 0.86, Estim Creat Clear Calc 43.31, Est GFR (MDRD) Af Amer 83, Est GFR (MDRD) Non-Af 69, BUN/Creatinine Ratio 16.3, Glucose 99, Calcium 9.3 04/13/19 09:40: POC Glucose 144 H 04/13/19 11:51: POC Glucose 153 H Current Medications Acetaminophen (Tylenol) 650 mg PO Q6H PRN PRN PRN Reason: Pain Score 1-3/Temp > 100.7 F Albuterol Sulfate (Ventolin Aerosols) 2.5 mg INHALATION Q4H PRN PRN PRN Reason: COPD Aspirin (Ecotrin) 81 mg PO QHS [facility] Atorvastatin Calcium (Lipitor) 5 mg PO QHS [facility] Dextrose (D50w Syringe) 0 gm IV X1 PRN; Protocol PRN Reason: Hypoglycemia Enoxaparin Sodium (Lovenox) 40 mg SC DAILY [facility] Last Admin: 04/13/19 07:41 Dose: 40 mg Documented by: Glucagon () 1 mg IM .X1 PRN PRN Reason: Hypoglycemia Hydromorphone HCl (Dilaudid Inj) 0.5 mg IV Q4H PRN PRN PRN Reason: Pain Score 6-10/10 Last Admin: 04/13/19 11:50 Dose: 0.5 mg Documented by: Sodium Chloride () 250 mls @ 15 mls/hr IV .[id number] PRN PRN Reason: Saline Flush Sodium Chloride () 250 mls @ 15 mls/hr IV .[id number] PRN PRN Reason: Additional IVPB Infusion Insulin Glargine (Lantus ([facility])) 45 units SC BID [facility] Last Admin: 04/13/19 11:53 Dose: 45 units Documented by: Insulin Human Lispro (Humalog Kwikpen ([facility])) 24 unit SC TIDCM [facility] Last Admin: 04/13/19 11:54 Dose: 24 units Documented by: Levothyroxine Sodium (Synthroid) 137 mcg PO DAILY@0600 [facility] Last Admin: 04/13/19 07:40 Dose: 137 mcg Documented by: Losartan Potassium (Cozaar) 12.5 mg PO DAILY [facility] Last Admin: 04/13/19 07:41 Dose: 12.5 mg Documented by: Metformin HCl (Glucophage Xr) 1,500 mg PO BREAKFAST [facility] Pantoprazole Sodium (Protonix) 40 mg PO DAILY [facility] Last Admin: 04/13/19 07:41 Dose: 40 mg Documented by: Sodium Chloride () 10 - 40 ml IV UD PRN PRN Reason: SALINE FLUSH Last Admin: 04/13/19 11:50 Dose: 10 ml Documented by: Tizanidine HCl (Zanaflex) 2 mg PO Q8H PRN PRN PRN Reason: MUSCLE SPASM Zolpidem Tartrate (Ambien (Generic)) 5 mg PO QHS PRN PRN PRN Reason: SLEEP Discharge Diet: Low fat/ Low Cholesterol, 1800 Calorie Control Diet, 2000 mg Sodium Diet Discharge Activity: Return to Normal Activity, Use Walker Home Medications: Medications to take at Discharge Albuterol IH (ProAir) [Proair Hfa] 1 puff INHALATION Q4H PRN PRN 04/23/18 Aspirin [Adult Aspirin] 81 mg PO QHS 04/23/18 Insulin Aspart [Novolog Flexpen] 24 units SQ TIDCM 04/23/18 Insulin Glargine,Hum.rec.anlog [Lantus] 45 units SQ BID 04/23/18 Levothyroxine [Synthroid] 137 mcg PO DAILY 04/23/18 Losartan Potassium [Cozaar] 12.5 mg PO DAILY 04/23/18 Metformin HCl [Metformin ER Osmotic] 1,500 mg PO BREAKFAST 04/23/18 Pantoprazole Sodium 40 mg PO DAILY 04/23/18 Simvastatin 10 mg PO QHS 04/23/18 Zolpidem Tartrate [Ambien] 5 mg PO QHS PRN PRN 04/23/18 Ibuprofen 2 - 3 tab PO Q6H PRN #1 tablet 04/24/18 Acetaminophen [Tylenol Tablet] 650 mg PO Q6H PRN PRN tab 04/13/19 Oxycodone [Oxyir] 5 mg PO Q6H PRN PRN 3 Days #12 tab 04/13/19 Tizanidine HCl [Zanaflex] 2 mg PO Q8H PRN PRN #15 tab 04/13/19 Following Prescrptions Were Given to Patient: Oxycodone [Oxyir] 5 mg PO Q6H PRN PRN 3 Days #12 tab PRN Reason: Pain Score 6-10/10 Transmission Status: Received by [facility] Tizanidine HCl [Zanaflex] 2 mg PO Q8H PRN PRN #15 tab PRN Reason: Muscle Spasm Transmission Status: Received by [facility] Primary Care Physician: Maikel Morris [Primary Care Provider] - Please follow up with your Primary Care Physician in: 1-2 weeks Disposition: Home Minutes spent on discharge:: 40 Patient Condition:: Stable Medical Necessity - Tobacco Use Smoking Status: Former smoker Meaningful Use Info Meaningful Use Diagnoses (Choose all that apply): None applicable <Anne Willis - Last Filed: 04/13/19 16:39> Discharge Date and Diagnosis - Secondary Discharge Diagnosis Chronic Problems (Last Updated 04/23/18 @ 15:29 by Richar Duncan DO) Diabetes (Chronic) Hyperlipidemia (Chronic) GERD (gastroesophageal reflux disease) (Chronic) Hypothyroid (Chronic) Hospital Course and Treatment Summary of Care Provided: Patient seen by Pablo Knight PA-C under my supervision The patient is a 73 year old F with a past medical history as outlined who was admitted through the ED in the early hours of 04/13/2019 with a complaint of left knee and hip pain. She had apparently twisted her knee while was out walking her dog a few days prior to admission. She was able to do with the pain subsequently but on the day of admission, the pain became worse and she was unable to weight-bear so she went to [facility] and was transferred [facility] to be managed for intractable pain. Initial x-rays done at [facility] were negative for any fracture of the knee or the hip. She had an MRI of the pelvis at [facility] which was negative and MRI of the left knee showed mild medial compartment arthrosis with a small joint effusion with Salas's cyst but no acute internal derangement. During my review, patient told me that she did not think she was able to weight-bear, and also that she had 4 steps going into her trailer home and was not sure she could go home. However when evaluation by physical therapy, patient was able to ambulate comfortably and actually requested to go home. Patient stated that she was comfortable with outpatient therapy. She was discharged home for outpatient therapy. She is to follow-up with her primary care doctor within 1 week. Patient seen and examined prior to discharge. Pain was well controlled and she had no active complaints. She denied any fever or chills, nausea vomiting, shortness of breath, abdominal pain, diarrhea vomiting. Review of systems otherwise negative. Labs and vitals reviewed. Home medication reviewed and reconciled. O/e: Vital Signs Height 5 ft 1 in Weight: 227 lb 1.218 oz Weight in Pounds 227.1 lbs Pulse Ox 97 Temperature 97.7 F Pulse Rate 75 Respiratory Rate 16 Blood Pressure 138/63 Blood Pressure Position Semi-Fowlers General: Alert, Oriented x3, Cooperative HEENT: Atraumatic, PERRLA, EOMI, Normocephalic Neck: Supple, No JVD, Negative Carotid Bruits Lungs: Clear to auscultation, Normal air movement Cardiovascular: Regular rate, No murmurs Abdomen: Bowel Sounds Present, Soft, Non Tender Extremities: No edema, Capillary Refill Less than 3 Seconds Skin: No rashes, No breakdown Musculoskeletal: No Tenderness to Palpation of Joints or Extremities, able to flex LLE at knee and hip without complaint. Neurological: Cranial nerves II-XII grossly intact Psych/Mental Status: Normal Affect, Appropriate Plan is for discharge home today and to undergo outpatient physical therapy. Rest as per Pablo Knight PA-C's note, which I have reviewed and endorsed. - Physical Exam Vitals/I&O's: Vital Signs Temp Pulse Resp BP Pulse Ox 97.7 F L 75 16 138/63 H 97 04/13/19 09:30 04/13/19 09:30 04/13/19 09:30 04/13/19 09:30 04/13/19 09:30 Oxygen Flow Rate (L/min) 2 Oxygen Delivery Method Nasal Cannula Weight: 227 lb 1.218 oz Body Mass Index (BMI) 42.9 Intake and Output for Last 24 Hours 04/11/19 04/12/19 04/13/19 23:59 23:59 23:59 Intake Total 740 / 740 Output Total 0 / 0 Balance 740 / 740 Laboratory Results 04/13/19 07:50: WBC 8.8, RBC 4.98, Hgb 14.6, Hct 45.3, MCV 91.0, MCH 29.3, MCHC 32.2, RDW Std Deviation 48.9 H, RDW Coeff of Magnolia 14.6, Plt Count 187, MPV 9.5, Immature Gran % (Auto) 1.200 H, Neut % (Auto) 71.2 H, Lymph % (Auto) 16.7 L, [place] % (Auto) 6.7, Eos % (Auto) 3.4, Baso % (Auto) 0.8, Absolute Neuts (auto) 6.3, Absolute Lymphs (auto) 1.47, Nucleated RBC % 0 04/13/19 07:50: Sodium 140, Potassium 3.8, Chloride 104, Carbon Dioxide 35.0 H, Anion Gap 1 L, BUN 14, Creatinine 0.86, Estim Creat Clear Calc 43.31, Est GFR (MDRD) Af Amer 83, Est GFR (MDRD) Non-Af 69, BUN/Creatinine Ratio 16.3, Glucose 99, Calcium 9.3 04/13/19 09:40: POC Glucose 144 H 04/13/19 11:51: POC Glucose 153 H Code Visit OBSV E&M: 62166 Observ/hosp same date L2
== END 2019-04-13 15:12 | disposition home or self-care (01) | DRG 554 ==
PROVIDERS: Admitting Provider Family Medicine; Visit Provider Student in an Organized Health Care Education/Training Program
DX: M17.12 Unilateral primary osteoarthritis, left knee (principal); Z68.41 Body mass index [BMI] 40.0-44.9, adult; M71.20 Synovial cyst of popliteal space [Baker], unspecified knee; E66.01 Morbid (severe) obesity due to excess calories; E11.9 Type 2 diabetes mellitus without complications; E03.9 Hypothyroidism, unspecified; E78.5 Hyperlipidemia, unspecified; K21.9 Gastro-esophageal reflux disease without esophagitis; Z79.82 Long term (current) use of aspirin; Z79.4 Long term (current) use of insulin; Z79.899 Other long term (current) drug therapy; Z87.891 Personal history of nicotine dependence
CPT/HCPCS: 36415; 72195; 73721; 80048; 82962; 85025; 97163; 97167; A4216

== ENCOUNTER → 2019-10-21 16:20 | Outpatient (CLI) | payer MEDICARE, OTHER, SELFPAY ==
--- NOTE | 2019-10-21 16:22 | CT_ITS ---
STUDY: CT ABDOMEN WITH CONTRAST REASON FOR EXAM: Female, 74 years old. 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 administration of IV 100mL Isovue-300, and without oral contrast. Sagittal and coronal images were reconstructed. Individualized dose optimization techniques were used for this CT. COMPARISON: Prior abdomen and pelvic CT exam of 05/12/2018 FINDINGS: The visualized lung bases are unremarkable. The visualized portions of the heart are within normal limits. Normal liver. There are surgical clips in the gallbladder fossa consistent with a prior cholecystectomy. Normal spleen. Normal pancreas. Normal bilateral adrenal glands. Normal right kidney. Postsurgical defect in the upper pole of the left kidney. Subcentimeter cyst remains in the upper pole of the left kidney which is decreased in size from the prior exam. Otherwise normal left kidney. Normal visualized stomach. 2 duodenal diverticula. Otherwise normal proximal small bowel. Normal colon included in the [id number]. There is diffuse atherosclerotic calcification of the abdominal aorta with elongation and tortuosity, but without a demonstrated aneurysm. Normal inferior vena cava. Normal retroperitoneum. Normal abdominal wall. There are diffuse degenerative changes of the visualized lumbar spine. CT/Abdomen WITH IV Contrast IMPRESSION: Post surgical defect in the upper pole of the left kidney with no evidence of tumor recurrence or metastatic disease of the abdomen. Subcentimeter upper pole left renal cyst decreased in size from prior exam. No further imaging recommendations. Normal right kidney and adrenal glands. Normal liver, spleen and pancreas status post cholecystectomy. No acute bowel related findings. Stable atherosclerotic changes of the aorta. Negative for retroperitoneal adenopathy. Electronically Signed: Lorri Aviles MD at 20:26 EDT , Service support ,
[2019-10-21 16:36] LABS: CREATININE FINGERSTICK 0.7 mg/dL (0.55-1.02)
== END ==
PROVIDERS: Referring Provider Urology; Visit Provider Urology
DX: N28.89 Other specified disorders of kidney and ureter (principal)
CPT/HCPCS: 74160; Q9967

== ENCOUNTER → 2020-02-23 | Outpatient (CLI) | payer MEDICARE, OTHER, SELFPAY ==
[2020-02-23 13:10] LABS: D-Dimer Quantitative (DVT/PE) 0.42 FEU/ug/m (0.27-0.49)
== END | disposition home or self-care (01) ==
LOC: LABSPEC 12:45
PROVIDERS: Referring Provider Family Medicine; Visit Provider Family Medicine
DX: R07.9 Chest pain, unspecified (principal)
CPT/HCPCS: 85379

== ENCOUNTER 2021-03-29 14:29 | Emergency (ER) | payer MEDICARE, OTHER, SELFPAY ==
[2021-03-29 14:29] VITALS: PULSE 87
[2021-03-29 14:30] VITALS: BP 145/68; PULSE 102; RESP 18; TEMP 35.4; O2SAT 90; BMI 44.4
--- NOTE | 2021-03-29 14:53 | EKG12_ITS ---
Test Reason : CP Blood Pressure : / mmHG Vent. Rate : 084 BPM Atrial Rate : 084 BPM P-R Int : 132 ms QRS Dur : 078 ms QT Int : 362 ms P-R-T Axes : 073 056 075 degrees QTc Int : 427 ms Sinus rhythm with Premature atrial complexes Low voltage QRS Borderline ECG Confirmed by MALISSA NOLASCO, JEFFY ([id number]), film editor supervisor ROHITH VEE ([id number]) on 04/02/2021 11:23:11 AM Referred By: ARGELIA/JENARO Confirmed By:JEFFY LEONARDO MD
--- NOTE | 2021-03-29 14:55 | ED.VIS.CHEST ---
HPI History of Present Illness Chief Complaint: Chest Pain Informant: patient Onset/Context/Timing Onset: Weeks (1 wk, worse in past 3 days) Activity at onset: gradual Timing: Waxes and wanes Quality: Positive for Heaviness and Pressure Location: Left Chest Current Severity: Mild Maximum Severity: Moderate Worsened By: Exertion and - (Lying supine); Not Worsened By Breathing Relieved By: Nothing Associated Symptoms: Positive for Dyspnea and Cough; Negative for Nausea, Vomiting, Diaphoresis, Fever, Lightheadedness and Palpitations Narrative Narrative: Patient states she has been having chest discomfort left-sided nonpleuritic for the past 3 days, she states is off-and-on but cannot recall if it actually goes away or not. She states it has been there for a while and when asked to define that she states about a week. States she has chronic swelling in her legs that has been worse, she also has had a cough for about 2 weeks as well as some orthopnea and dyspnea that is worse with exertion as well. She denies a history of heart disease that she knows of. She denies exposure to COVID-19 that she knows of. She was vaccinated. She had stopped smoking in the past but states she started up again recently. [facility] Medical History (Updated 03/29/21 @ 19:[address] Chepe Siddiqi MD) COPD (chronic obstructive pulmonary disease) DM2 (diabetes mellitus, type 2) GERD (gastroesophageal reflux disease) HTN (hypertension) Hyperlipidemia Hypothyroidism Home Medications albuterol sulfate [ProAir HFA] 1 puff INHALATION Q4H PRN PRN 04/23/18 [History Last Taken 04/22/18] aspirin [Adult Aspirin Regimen] 81 mg PO QHS 04/23/18 [History Last Taken 04/12/19] insulin aspart U-100 [Novolog Flexpen U-100 Insulin] 24 units SQ TIDCM 04/23/18 [History Last Taken 04/12/19] insulin glargine [Lantus U-100 Insulin] 45 units SQ BID 04/23/18 [History Last Taken 04/12/19] levothyroxine 137 mcg PO DAILY 04/23/18 [History Last Taken 04/12/19] losartan 12.5 mg PO DAILY 04/23/18 [History Last Taken 04/12/19] metformin 1,500 mg PO BREAKFAST 04/23/18 [History Last Taken 04/12/19] pantoprazole 40 mg PO DAILY 04/23/18 [History Last Taken 04/12/19] simvastatin 10 mg PO QHS 04/23/18 [History Last Taken 04/12/19] zolpidem 5 mg PO QHS PRN PRN 04/23/18 [History Last Taken 04/12/19] ibuprofen 2 - 3 tab PO Q6H PRN #1 tab 04/24/18 [Rx Last Taken Unknown] acetaminophen 650 mg PO Q6H PRN PRN tab 04/13/19 [Rx Last Taken Unknown] tizanidine 4 mg PO Q8H PRN PRN 03/29/21 [History Last Taken Unknown] Allergy/AdvReac Type Severity Reaction Status Date / Time Penicillins Allergy Hives Verified 03/29/21 14:30 Sulfa (Sulfonamide Allergy Unknown Verified 03/29/21 14:30 Antibiotics) codeine AdvReac Upset Verified 03/29/21 14:30 Stomach Social History (Updated 03/29/21 @ 14:[address] Chepe Siddiqi MD) Smoking Status: Current every day smoker tobacco type: cigarettes ROS ROS ED Constitutional Constitutional ED: Denies chills or fever(s) Eyes Eyes: Denies change in vision or diplopia ENT ENT ED: Denies rhinorrhea or sore throat Cardiovascular Cardiovascular: Reports chest pain, dyspnea on exertion, edema and orthopnea; Denies palpitations Respiratory/Chest Respiratory/Chest: Reports cough, dyspnea, dyspnea on exertion and orthopnea Gastrointestinal Gastrointestinal: Denies abdominal pain, diarrhea, nausea or vomiting Genitourinary Genitourinary ED: Denies dysuria or hematuria Musculoskeletal Musculoskeletal: Denies back pain or neck pain Integumentary Denies abscess or rash Neurologic Neurologic: Denies headache(s), paresthesias or weakness Psychiatric Psychiatric: Denies anxiety or suicidal thoughts EXAM Physical Exam Const Vital Signs: 03/29/21 14:29 03/29/21 14:30 03/29/21 15:20 Temperature 95.8 F L Temperature Source Temporal Pulse Rate 87 102 H Respiratory Rate 18 Respiratory Effort Normal Non-Labored Blood Pressure 145/68 H Blood Pressure Mean 93 Pulse Ox 90 Oxygen Delivery Method Room Air 03/29/21 19:06 Temperature Temperature Source Pulse Rate 89 Respiratory Rate 16 Respiratory Effort Blood Pressure 139/70 H Blood Pressure Mean 93 Pulse Ox 99 Oxygen Delivery Method Room Air Positive well nourished and well developed General Appearance ED: well developed and NAD Nutritional Appearance: morbidly obese HEENT Reports moist mucous membranes normocephalic and atraumatic Eyes PERRL and EOMs intact bilaterally Neck full ROM, supple and no JVD Resp normal respiratory effort, no retractions and no use of accessory muscles Effort and Inspection: Negative for respiratory distress, stridor or actively coughing Auscultation: wheezes expiratory wheezes (Mild end expiratory throughout bases); Negative for crackles, rales or rhonchi Cardio regular rate, regular rhythm and no murmurs GI non-tender and non-distended Auscultation: normoactive bowel sounds Palpation: soft Back/Spine no CVA tenderness General Back: other FROM Extremity normal to inspection General Extremety ED: Yes edema; Negative for pulses abnormal or tenderness General Extremity: edema bilateral lower extremity Details: moderate (Symmetric without tenderness/abscess/cellulitis); Negative for pulses abnormal Neuro oriented x3, CN's II-XII intact bilaterally and no sensory deficits noted Sensorium / Orientation: awake and alert Motor Exam: strength 5/5 throughout Skin no rashes or lesions noted and no wounds Heart Score History: Moderately Suspicious ECG: Normal Age: >/= 65 years Risk Factors: >/= 3 Risk Factors or History of CAD Troponin: </= Normal Limit Score: 5 MDM MDM MDM Narrative Medical decision making narrative: Troponin and BNP are both low and negative. This makes the wheezing more likely related to COPD. I offered her admission for provocative cardiac stress testing but she declines and prefers to go home and follow-up with her doctor and actually has an appointment with him tomorrow. It is possible this is all respiratory in etiology, I offered her a prescription for prednisone but she would prefer to wait and see her doctor tomorrow. Lab Data Attestation: I reviewed the patient's lab results. Labs: Laboratory Results - last 24 hr 03/29/21 03/29/21 03/29/21 14:50 14:50 14:50 WBC 8.6 RBC 5.47 H Hgb 15.1 H Hct 46.5 MCV 85.0 MCH 27.6 MCHC 32.5 RDW Std Deviation 48.0 H RDW Coeff of [place] 15.5 H Plt Count 196 MPV 9.6 Immature Gran % (Auto) 1.000 H Neut % (Auto) 80.8 H Lymph % (Auto) 10.2 L Hendricks % (Auto) 5.6 Eos % (Auto) 1.6 Baso % (Auto) 0.8 Absolute Neuts (auto) 7.0 Absolute Lymphs (auto) 0.88 Nucleated RBC % 0 Sodium 137 Potassium 3.8 Chloride 101 Carbon Dioxide 35.0 H Anion Gap 1 L BUN 19 H Creatinine 0.84 Estim Creat Clear Calc 40.93 Est GFR (MDRD) Af Amer 85 Est GFR (MDRD) Non-Af 70 BUN/Creatinine Ratio 22.6 H Glucose 98 Calcium 9.5 Troponin I High Sens 13 B-Natriuretic Peptide 9.6 Radiography Diagnostic Testing: Clinical Impression(s) from Imaging Studies Chest X-Ray 03/29/21 15:12 IMPRESSION: Hyperinflation. No acute abnormality is seen. Electronically Signed: Freedom Brandt MD at 15:24 EST , Service support , Rhythm Strip Rhythm Strip: Sinus Rhythm Rate: 85 Ectopy: PAC(s) EKG Initial EKG: Attestation: I personally reviewed and interpreted this EKG as follows: Interpretation: Sinus Rhythm and No Acute Injury Pattern Comments: Sinus rhythm with PAC, anterior Q waves otherwise unremarkable EKG. Normal axis. Prior EKG tracings: available for review Prior: Unchanged Discharge Plan Triage Chief Complaint: Chest Pain ED Provider: Chepe Siddiqi Dx/Rx/DC Orders Clinical Impression: Chest pain, COPD (chronic obstructive pulmonary disease) Instructions: ED Chest Pain, Uncertain Cause Prescriptions: No Action levothyroxine 137 MCG tablet 137 mcg PO DAILY RF: 0 simvastatin 10 MG tablet 10 mg PO QHS RF: 0 losartan 25 MG tablet 12.5 mg PO DAILY RF: 0 metformin 500 MG tablet extended release 24hr 1,500 mg PO BREAKFAST RF: 0 pantoprazole 40 MG tablet,delayed release (DR/EC) 40 mg PO DAILY RF: 0 albuterol sulfate [ProAir HFA] 1 PUFF inhaler 1 puff inhalation Q4H PRN PRN (Reason: COPD) RF: 0 insulin glargine [Lantus U-100 Insulin] 100 UNIT/ML Ml 45 units SQ BID RF: 0 zolpidem 5 MG tablet 5 mg PO QHS PRN PRN (Reason: Sleep) RF: 0 insulin aspart U-100 [Novolog Flexpen U-100 Insulin] 100 UNITS/ML Flexpen 24 units SQ TIDCM RF: 0 aspirin [Adult Aspirin Regimen] 81 MG Tablet.Dr 81 mg PO QHS RF: 0 ibuprofen 200 MG tablet 2 - 3 tab PO Q6H PRN (Reason: Pain) Qty: 1 RF: 0 acetaminophen 325 MG tablet 650 mg PO Q6H PRN PRN (Reason: Pain Score 1-3/Temp > 100.7 F) RF: 0 tizanidine 2 MG tablet 4 mg PO Q8H PRN PRN (Reason: Muscle Spasm) RF: 0 Primary Care Provider: Maikel Morris Referrals: Maikel Morris [Primary Care Provider] - (As scheduled tomorrow) Disposition Disposition: Home, Self Care
[2021-03-29 15:05] LABS: Absolute Lymphocyte Count 0.88 X10^3/uL (0.83-4.51); Basophil# 0.07 X10^3/uL; Basophil% 0.8 % (0-1); Eosinophil# 0.14 X10^3/uL; Eosinophils% 1.6 % (0-5); Hematocrit 46.5 % (37-47); Hemoglobin 15.1 g/dL (12.0-15.0); Lymphocyte # 0.88 X10^3/ul (0.83-4.51); Lymphocyte % 10.2 % (19-41); Mean Corp Hgb Conc 32.5 g/dL (32-36); Mean Corpuscular Hgb 27.6 pg (27.0-32.0); Mean Platelet Vol. 9.6 fl (6.2-12.0); Monocyte# 0.48 X10^3/uL; Monocyte% 5.6 % (0-10); NRBC Flagged by Analyzer 0 % (0-5); Neutrophil # 6.97 X10^3/uL (2.7-7.7); Neutrophil % 80.8 % (47-70); Platelet Count 196 K/mm3 (150-450); RBC Distribution Width CV 15.5 % (11.6-14.6); Red Blood Count 5.47 M/mm3 (4.2-5.4); White Blood Count 8.6 K/mm3 (4.4-11.0)
--- NOTE | 2021-03-29 15:12 | RAD_ITS ---
STUDY: X-RAY CHEST REASON FOR EXAM: Female, 75 years old. cp/sob TECHNIQUE: Single AP portable view of the chest. COMPARISON: Comparison is made with prior study dated 04/23/2018. FINDINGS: EKG electrodes are seen. There is hyperinflation of the lungs consistent with chronic obstructive lung disease (COPD). There is no demonstrated pleural abnormality. There is mild cardiac enlargement. Normal mediastinum and willy. Normal visualized pulmonary arteries. There is atherosclerotic calcification of the aortic arch with tortuosity. There are diffuse degenerative changes of the visualized thoracic spine. Normal visualized ribs, clavicles, and shoulders. There is no demonstrated abnormality of the visualized soft tissue structures of the upper abdomen. RAD/Chest 1 View (Portable) IMPRESSION: Hyperinflation. No acute abnormality is seen. Electronically Signed: Freedom Brandt MD at 15:24 EST , Service support ,
[2021-03-29 15:30] LABS: Anion Gap 1 (5-15); BUN 19 mg/dL (7-18); BUN/Creat Ratio 22.6 RATIO (10-20); Calcium,Total 9.5 mg/dL (8.5-10.1); Chloride 101 mmol/L (98-107); Creatinine, Serum 0.84 mg/dL (0.55-1.02); EST Glomerular Filtration Rate 70 mL/min (>60); Est Glom Filt Rate - Afr Amer 85 mL/min (>60); Estimated Creatinine Clearance 40.93 ml/min; Glucose 98 mg/dL (74-106); Potassium 3.8 mmol/L (3.5-5.1); Sodium Level 137 mmol/L (136-145); Troponin-I HS 13 pg/mL (3.0-54.0)
[2021-03-29 17:53] LABS: BNP,B-Type NATRIURETIC PEPTIDE 9.6 pg/mL (0-100)
[2021-03-29 19:06] VITALS: BP 139/70; PULSE 89; RESP 16; O2SAT 99
[2021-03-29 19:48] VITALS: PULSE 92; RESP 19; O2SAT 96
== END 2021-03-29 19:57 | disposition home or self-care (01) ==
PROVIDERS: Emergency Provider Emergency Medicine; Visit Provider Emergency Medicine
DX: R07.9 Chest pain, unspecified (principal); J44.9 Chronic obstructive pulmonary disease, unspecified; E11.9 Type 2 diabetes mellitus without complications; F17.210 Nicotine dependence, cigarettes, uncomplicated; E78.5 Hyperlipidemia, unspecified; I10 Essential (primary) hypertension; E03.9 Hypothyroidism, unspecified; K21.9 Gastro-esophageal reflux disease without esophagitis; Z79.899 Other long term (current) drug therapy; Z79.84 Long term (current) use of oral hypoglycemic drugs
CPT/HCPCS: 71045; 80048; 83880; 84484; 85025; 87426; 93005; 99285; A4216

== ENCOUNTER → 2022-05-06 | Outpatient (CLI) | payer MEDICARE, OTHER, SELFPAY ==
--- NOTE | 2022-05-07 07:09 | PFT ---
INTRODUCTION: The patient is a 76-year-old female that presents for pulmonary function studies secondary to a diagnosis of COPD. Respiratory therapy reported good patient effort. Bronchodilators were used during testing. INTERPRETATION: Forced expiration spirometry demonstrates the presence of a moderate large airways obstructive ventilatory defect. There was no significant response to aerosolized bronchodilators. Spirograms are of good quality but do not plateau indicating slow emptying of the lungs. Body plethysmography was performed and revealed an elevated RV to 160% of predicted, indicative of underlying air trapping. Diffusing capacity by single breath CO was within normal limits. IMPRESSION: Irreversible moderate large airways obstructive ventilatory defect with associated air trapping and preserved diffusing capacity.
== END | disposition home or self-care (01) ==
PROVIDERS: Visit Provider Internal Medicine
DX: G47.33 Obstructive sleep apnea (adult) (pediatric) (principal); J44.9 Chronic obstructive pulmonary disease, unspecified
CPT/HCPCS: 94060; 94726; 94729

== ENCOUNTER → 2022-05-10 | Outpatient (CLI) | payer MEDICARE, OTHER, SELFPAY ==
[2022-05-10] MEDS: Zolpidem Tartrate 5 MG Tablet PO (23:24)
== END | disposition home or self-care (01) ==
PROVIDERS: Visit Provider Internal Medicine
DX: G47.33 Obstructive sleep apnea (adult) (pediatric) (principal); J44.9 Chronic obstructive pulmonary disease, unspecified; E03.9 Hypothyroidism, unspecified
CPT/HCPCS: 95811

== ENCOUNTER → 2022-05-14 | Outpatient (CLI) | payer MEDICARE, OTHER, SELFPAY ==
[2022-05-14 11:44] LABS: BNP,B-Type NATRIURETIC PEPTIDE 4.4 pg/mL (0-100)
[2022-05-14 11:52] LABS: Thyroid Stim Hormone (TSH) 3.23 uIU/mL (0.358-3.74)
[2022-05-15 19:50] LABS: V-Zoster IgG (Immunity) 1047 index (Immune >165)
== END | disposition home or self-care (01) ==
LOC: LAB 11:01
PROVIDERS: Referring Provider Internal Medicine; Visit Provider Internal Medicine
DX: E66.2 Morbid (severe) obesity with alveolar hypoventilation (principal); E11.9 Type 2 diabetes mellitus without complications; R06.02 Shortness of breath; M54.50 Low back pain, unspecified; M54.6 Pain in thoracic spine
CPT/HCPCS: 36415; 83880; 84443; 86787

== ENCOUNTER 2022-10-27 11:02 | Emergency (ER) | payer MEDICARE, OTHER, SELFPAY ==
[2022-10-27 11:05] VITALS: BP 165/84; PULSE 93; RESP 18; TEMP 35.8; O2SAT 99; BMI 44.6
--- NOTE | 2022-10-27 11:36 | ED.VIS.BACK ---
HPI History of Present Illness Chief Complaint: Back Informant: patient Narrative Narrative: Patient presenting Friday morning for pain in her left mid back that started Friday. It hurts more to move than anything else. She has no dyspnea or fevers. She states for the past 5 or 6 weeks she has been having sinus and chest congestion with a cough, and some occasional wheezing, she initially went to ER at [facility] and declined admission for stress testing and is being set up as an outpatient to have that here at [facility] but has yet to have it. She denies any recent episodes of chest discomfort, she has been on multiple courses of prednisone for this it helps a little, and she is currently in the middle of a taper. She has chronic swelling of both of her legs that is off and on no different than usual though. No fevers or chills. She states the back pain is new with all of this and has been present for 4 days. She denies any palpitations near syncope or syncope or other systemic symptoms other than above. [facility] Medical History COPD (chronic obstructive pulmonary disease) DM2 (diabetes mellitus, type 2) GERD (gastroesophageal reflux disease) HTN (hypertension) Hyperlipidemia Hypothyroidism Nicotine addiction Obesity hypoventilation syndrome BERNARDO and COPD overlap syndrome Home Medications aspirin 81 mg tablet,delayed release (Adult Aspirin Regimen) 81 mg PO QHS HE[facility] HEALTH 04/23/18 [History Last Taken 04/12/19] losartan 25 mg tablet 12.5 mg PO DAILY b/p 04/23/18 [History Last Taken 04/12/19] metformin 500 mg tablet,extended release 24hr 1,500 mg PO BREAKFAST diabetes 04/23/18 [History Last Taken 04/12/19] pantoprazole 40 mg tablet,delayed release 40 mg PO DAILY GERD 04/23/18 [History Last Taken 04/12/19] simvastatin 10 mg tablet 10 mg PO QHS cholesterol 04/23/18 [History Last Taken 04/12/19] zolpidem 5 mg tablet 5 mg PO QHS PRN PRN Sleep 04/23/18 [History Last Taken 04/12/19] ibuprofen 200 mg tablet 2 - 3 tab PO Q6H PRN Pain #1 TAB 04/24/18 [Rx Last Taken Unknown] acetaminophen 325 mg tablet 650 mg (2 x 325 mg) PO Q6H PRN PRN Pain Score 1-3/Temp > 100.7 F 04/13/19 [Rx Last Taken Unknown] tizanidine 2 mg tablet 4 mg PO Q8H PRN PRN Muscle Spasm 03/29/21 [History Last Taken Unknown] albuterol sulfate 2.5 mg/3 mL (0.083 %) solution for nebulization 1.25 mg inhalation Q4H PRN 04/24/22 [History Last Taken Unknown] gabapentin 100 mg capsule ea PO 04/24/22 [History Last Taken Unknown] insulin aspart U-100 100 unit/mL (3 mL) subcutaneous pen (Novolog FlexPen U-100 Insulin aspart) 24 unit subcut TIDCM DIABETES 04/24/22 [History Last Taken Unknown] insulin glargine 100 unit/mL subcutaneous solution (Lantus U-100 Insulin) 45 unit subcut BID DIABETES 04/24/22 [History Last Taken Unknown] levothyroxine 137 mcg tablet 150 mcg PO DAILY hypothyroidism 04/24/22 [History Last Taken Unknown] Chantix Starting Month Box 0.5 mg (11)-1 mg (42) tablets in dose pack (varenicline) See Rx Instructions PO PER PKG DIR smoking cessation #53 tabs 05/20/22 [Rx Last Taken Unknown] Nebulizer machine #1 ea 05/20/22 [Rx Last Taken Unknown] Supplies for nebulizer machine #1 ea 05/20/22 [Rx Last Taken Unknown] albuterol sulfate 90 mcg/actuation aerosol inhaler (ProAir HFA) 1 puff inhalation Q4H PRN PRN COPD #8.5 grams 05/20/22 [Rx Last Taken Unknown] nystatin 100,000 unit/mL oral suspension 1 ml PO BID PRN oral thrush #60 mL 05/20/22 [Rx Last Taken Unknown] prednisone 10 mg tablet 10 mg PO QDAY #30 tabs 10/16/22 [Rx Last Taken Unknown] fluticasone fur. 200 mcg-umeclid 62.5 mcg-vilant 25 mcg inhalat.powder (Trelegy Ellipta) 1 inh inhalation DAILY #3 ea 10/23/22 [Rx Last Taken Unknown] hydrocodone-acetaminophen 5-325mg 5mg-325mg 1 tab PO Q6H PRN PRN Pain 4 days #15 TABLETS 10/27/22 [Rx Last Taken Unknown] Allergy/AdvReac Type Severity Reaction Status Date / Time Penicillins Allergy Hives Verified 10/16/22 10:06 Sulfa (Sulfonamide Allergy Unknown Verified 10/16/22 10:06 Antibiotics) codeine AdvReac Upset Verified 10/16/22 10:06 Stomach Surgical History (Updated 10/27/22 @ 11:15 by Eden Camarillo) H/O rotator cuff surgery History of carpal tunnel surgery History of thyroid surgery Hx of cholecystectomy Social History Smoking Status: Current every day smoker tobacco type: cigarettes ROS ROS ED Constitutional Constitutional ED: Denies chills or fever(s) Eyes Eyes: Denies change in vision or diplopia ENT ENT ED: Reports headache(s) and nasal congestion; Denies rhinorrhea or sore throat Cardiovascular Cardiovascular: Denies chest pain or palpitations Respiratory/Chest Respiratory/Chest: Reports cough; Denies dyspnea Gastrointestinal Gastrointestinal: Denies abdominal pain, diarrhea, nausea or vomiting Genitourinary Genitourinary ED: Denies dysuria or hematuria Musculoskeletal Musculoskeletal: Reports back pain; Denies neck pain Integumentary Reports rash; Denies abscess Neurologic Neurologic: Reports vertigo; Denies paresthesias or weakness Psychiatric Psychiatric: Denies anxiety or suicidal thoughts EXAM Physical Exam Const Vital Signs: 10/27/22 11:05 Temperature 96.5 F L Temperature Source Temporal Pulse Rate 93 Respiratory Rate 18 Blood Pressure 165/84 H Blood Pressure Mean 111 Pulse Ox 99 Oxygen Delivery Method Room Air Positive well nourished, well developed and obese General Appearance ED: well developed and NAD Nutritional Appearance: obese HEENT Reports moist mucous membranes normocephalic and atraumatic Eyes PERRL and EOMs intact bilaterally Neck full ROM and supple Resp normal respiratory effort and clear to auscultation bilaterally Cardio regular rate, regular rhythm and no murmurs GI non-distended GI Narrative: Benign abdomen Auscultation: normoactive bowel sounds Palpation: soft Back/Spine no CVA tenderness Back/Spine Narrative: Patient is tender in left low-mid back around the flank in dermatome approximately T10 where there are several patches of erythematous lesions that are more papular, possibly vesicular, the lesions especially are tender but she is tender in the entire dermatome and not on the right side, this includes the abdominal wall where there is a patch of lesions beneath her left breast. No other patches of lesions throughout her body. General Back: other FROM Extremity normal to inspection General Extremety ED: Negative for edema, pulses abnormal or tenderness General Extremity: Negative for edema or pulses abnormal Neuro oriented x3, CN's II-XII intact bilaterally and no sensory deficits noted Sensorium / Orientation: awake and alert Motor Exam: strength 5/5 throughout Skin no wounds Skin Narrative: Patches of lesions in left dermatome T10 see above MDM MDM MDM Narrative Medical decision making narrative: This is consistent with shingles which is what I think is causing the patient's pain. Her lungs are clear, her vital signs are normal except for mild systolic hypertension, I do not think she needs further work-up here emergently, she is being managed as an outpatient already on prednisone, I do not think we need to bump her prednisone taper up she can just finish it since she has been symptomatic for 4 days upon discovery of this. I am offering her a prescription for pain medication and advising topical capsaicin and/or Salonpas or lidocaine patches. She states that she had the shingles vaccine back in 2014, this was probably the one that was only 60% effective, she did have chickenpox as a child. Hopefully the vaccine will minimize the severity and duration of this, close a patient follow-up advised but she is reassured at this time given a prescription for some [place]. Discharge Plan Triage Chief Complaint: Back ED Provider: Chepe Siddiqi Dx/Rx/DC Orders Clinical Impression: Shingles Instructions: Shingles (Herpes Zoster) Prescriptions: New hydrocodone-acetaminophen [hydrocodone-acetaminophen] 5-325 mg tablet 1 tab PO Q6H PRN PRN (Reason: Pain) 4 Days Qty: 15 0RF No Action gabapentin 100 mg capsule PO Patient Comments: TAKE 1 CAPSULE BY MOUTH THREE TIMES DAILY NEEDED FOR UP TO 30 DAYS. albuterol sulfate 2.5 mg /3 mL (0.083 %) solution for nebulization 1.25 mg inhalation Q4H PRN albuterol sulfate [ProAir HFA] 90 mcg/actuation HFA aerosol inhaler 1 puff inhalation Q4H PRN PRN (Reason: COPD) Qty: 8.5 6RF nystatin 100,000 unit/mL suspension 1 ml PO BID MDD 3 ml PRN (Reason: oral thrush) Qty: 60 2RF Rx Instructions: use for oral thrush, 1 ml swish, gargle and swallow, twice daily for 5 days. varenicline [Chantix Starting Month Box] 0.5 mg (11)- 1 mg (42) tablets,dose pack See Rx Instructions PO PER PKG DIR Qty: 53 1RF Rx Instructions: PO PER PKG DIR (DME) Supplies for nebulizer machine See Rx Instructions .ROUTE .MEDSUPPLY Qty: 1 0RF Rx Instructions: Tubing, plastic nebulizer cups, renewable every 30-90 days per insurance. Use every 4-6 hours with liquid respiratory medication as directed. (DME) Nebulizer machine See Rx Instructions .ROUTE .MEDSUPPLY Qty: 1 0RF Rx Instructions: Use with albuterol solution, 1 ampule up to 4 times daily as needed for COPD. Do not use at the same time as your albuterol inhaler. prednisone 10 mg tablet 10 mg PO QDAY Qty: 30 0RF Rx Instructions: take 4 tabs for three days, then 3 tabs for three days, then 2 tabs for three days, then 1 tab for 3 days simvastatin 10 MG tablet 10 mg PO QHS losartan 25 MG tablet 12.5 mg PO DAILY metformin 500 MG tablet extended release 24hr 1,500 mg PO BREAKFAST pantoprazole 40 MG tablet,delayed release (DR/EC) 40 mg PO DAILY zolpidem 5 MG tablet 5 mg PO QHS PRN PRN (Reason: Sleep) aspirin [Adult Aspirin Regimen] 81 MG tablet,delayed release (DR/EC) 81 mg PO QHS ibuprofen 200 MG tablet 2 - 3 tab PO Q6H PRN (Reason: Pain) Qty: 1 0RF levothyroxine 137 mcg tablet 150 mcg PO DAILY insulin aspart U-100 [Novolog FlexPen U-100 Insulin] 100 unit/mL (3 mL) insulin pen 24 unit subcut TIDCM insulin glargine [Lantus U-100 Insulin] 100 unit/mL solution 45 unit subcut BID acetaminophen 325 MG tablet 650 mg PO Q6H PRN PRN (Reason: Pain Score 1-3/Temp > 100.7 F) 0RF tizanidine 2 MG tablet 4 mg PO Q8H PRN PRN (Reason: Muscle Spasm) Trelegy Ellipta 200-62.5-25 mcg blister with device 1 inh inhalation DAILY Qty: 3 3RF Primary Care Provider: Maikel Morris Referrals: Maikel Morris MD [Primary Care Provider] - 1 Week if not improving Activity Restrictions/Additional Instructions: May try Salonpas patches, lidocaine patches, and/or capsaicin patches/cream, in addition to the prescription pain medication as needed. The prescription may be more helpful at night before bed. Try to avoid putting the patches or cream on open sores. If they are draining clear liquid you may place a piece of gauze or Band-Aid on it. Disposition Disposition: Home, Self Care
== END 2022-10-27 12:02 | disposition home or self-care (01) ==
LOC: ED 12:00
PROVIDERS: Emergency Provider Emergency Medicine; PCP Family Medicine; Visit Provider Emergency Medicine
DX: B02.9 Zoster without complications (principal); J44.9 Chronic obstructive pulmonary disease, unspecified; E11.9 Type 2 diabetes mellitus without complications; E78.5 Hyperlipidemia, unspecified; I10 Essential (primary) hypertension; F17.210 Nicotine dependence, cigarettes, uncomplicated; R09.81 Nasal congestion; R42 Dizziness and giddiness; E66.9 Obesity, unspecified
CPT/HCPCS: 99282

== ENCOUNTER → 2022-11-26 | Outpatient (CLI) | payer MEDICARE, OTHER, SELFPAY ==
[2022-11-26 13:05] VITALS: PULSE 105; PULSE 117; PULSE 118; PULSE 119; PULSE 121; PULSE 93; O2SAT 90; O2SAT 92
--- NOTE | 2022-11-26 13:08 | CPS ---
Pt stated she needed to sit down at minute 3 for sciatic pain. Pt remained seated for minutes 3 and 4. Walk resumed at minute 5.
--- NOTE | 2022-11-26 16:29 | PCM.PSN.6M ---
PSN 6 Minute Walk Test 6 Minute Walk Test 6 Minute Walk Test: 6 Minute Walk Test PSN:6-Minute Walk Test Start: 11/26/22 13:05 Freq: Status: Active Protocol: RESP.6MINW Document 11/26/22 13:05 [facility] (Rec: 11/26/22 13:11 [facility] [id number]) 6 Minute Walk Test Date Performed 11/26/22 Time Performed 13:00 Height 5 ft Weight: 104.326 kg Weight in Pounds 230.[address]: Bryon Assistive device used: None Pre-test Oxygen Delivery Method Room Air Pulse Ox 92 Pulse Rate (60-100) 93 Dyspnea Amaris Scale (0-10) 0.5 Exertion Amaris Scale (6-20) 6 1st minute Oxygen Delivery Method Room Air Pulse Ox 90 Pulse Rate (60-100) 119 H 2nd minute Oxygen Delivery Method Room Air Pulse Ox 90 Pulse Rate (60-100) 117 H 3rd minute Number of Rests Taken 1 4th minute Number of Rests Taken 1 5th minute Oxygen Delivery Method Room Air Pulse Ox 92 Pulse Rate (60-100) 118 H 6th minute Oxygen Delivery Method Room Air Pulse Ox 90 Pulse Rate (60-100) 121 H Dyspnea Amaris Scale (0-10) 1 Exertion Amaris Scale (6-20) 13 Reported Symptoms Increased Work of Breathing Post-test Oxygen Delivery Method Room Air Pulse Ox 92 Pulse Rate (60-100) 105 H Full Laps Walked 8 Partial Lap, Number of Tiles Walked 0 Total Distance Walked (ft) 472 11/26/22 13:08 Cardiopulmonary Services by Lisseth Vaughan Pt stated she needed to sit down at minute 3 for sciatic pain. Pt remained seated for minutes 3 and 4. Walk resumed at minute 5. Initialized on 11/26/22 13:08 - END OF NOTE Interpretation Interpretation: The patient was able to ambulate only 472 feet over the course of 6 minutes on room air with no assistive devices. The patient did sit down in the third minute secondary to sciatic pain and was unable to resume walking till minute 5. The patient did experience some desaturation from a baseline of 92% to as low as 90%, but had significant tachycardia as high as 121 bpm. These findings are consistent with a multifactorial limitation exercise tolerance. Recommendations Recommendations: The patient does not necessarily qualify for supplemental oxygen at this time, but did not travel a significant distance. Consider retesting if patient's mobility improves to evaluate for exertional hypoxemia.
== END | disposition home or self-care (01) ==
PROVIDERS: PCP Family Medicine; Referring Provider Nurse Practitioner Acute Care; Visit Provider Nurse Practitioner Acute Care
DX: J44.1 Chronic obstructive pulmonary disease with (acute) exacerbation (principal)
CPT/HCPCS: 94618